=== PATIENT | male | born 1960 | race American Indian/Alaskan Native ===

== ENCOUNTER → 2017-01-24 | Outpatient (CLI) | payer BC ==
--- NOTE | 2017-01-25 17:54 | MR ---
EXAM DATE: 01/24/17 PATIENT'S AGE: 56 Patient: CAREY VERA Facility: [facility], [place], [place] Site . Site : 1960 Study: MRI Head Angio [id number] 8:09:34 PM Ordering Physician: Anatoly Castanon Final Report: Indication: Trigeminal neuralgia. Comparison none. Technique: [id number] MRA. 3D reconstructed images. Findings: Bilateral carotid siphons are patent. Patent [place] with diminutive bilateral posterior communicating arteries. Visualized bilateral GUNNAR and MCA circulations are patent without focal stenosis or aneurysm. Asymmetric hypoplastic left A1 GUNNAR segments is a normal variant. Bilateral ELECTROLOGIST circulations are patent without stenosis or aneurysm. Codominant vertebrobasilar system. Impression: Normal MRA head. Dictated by Luciano Garcia MD @ Jan 25 2017 12:29PM (Electronic Signature) Report Signed by Proxy and Original Signed Document filed in the Medical Record. KELSEY
== END ==
LOC: MW.MRI 17:15 → MERGE 18:00
PROVIDERS: ATTEND Student in an Organized Health Care Education/Training Program
DX: G50.0 Trigeminal neuralgia (principal)
CPT/HCPCS: 70544; 70544-26

== ENCOUNTER 2020-09-11 16:48 | Inpatient (IN) | payer BC, OTHER ==
[2020-09-11] MEDS ORDERED: Acetaminophen 325 MG Tab PO PRN (18:05)
[2020-09-11] MEDS ORDERED: Albuterol/Ipratropium 3.0-0.5 MG/3 ML Neb Soln NEB PRN (18:05)
[2020-09-11] MEDS ORDERED: Ondansetron 4 MG/2 ML SDV IVPUSH PRN (18:05)
--- NOTE | 2020-09-11 18:16 | PCM.HP.2 ---
H&P History of Present Illness - General Date of Service: 09/11/20 Admit Problem/Dx: Admission Diagnosis/Problem Admission Diagnosis/Problem Hypoxia - History of Present Illness Initial Comments - Free Text/Narative: Patient is a 60 y/o M with PMH of trigeminal neuralgia, who was transferred from [facility] secondary to hypoxia due to COVID. . Patient had come in to be evaluated for SOB, weakness. He was found to be sating 85% on RA, was started on oxygen, iniatlly was needing only 2L , later requirment went up to 5-6Lts. Patients inflammatory markers were elevated, CBC, CMP was unremarkable, CTA chest was negative for PE but did show COVID Pneumonia. Patient was transferred to [facility] for further management. Patient has h/o travel to [place] and thinks he got the virus there. Patient denies any fever, chills, headache, change in vision, syncope or near syncope, any chest pain, back pain, abdominal pain, nausea, vomiting, diarrhea, constipation or dysuria. Has not noted any blood in urine or stool. Patient has been eating and drinking appropriately. - Related Data Allergies/Adverse Reactions: Allergies Allergy/AdvReac Type Severity Reaction Status Date / Time No Known Allergies Allergy Verified 09/11/20 20:01 Home Medications: Home Meds Albuterol [Ventolin HFA] 1 puff INH PRN 09/11/20 [History] carBAMazepine [Carbamazepine] 200 mg PO Q6HR 09/11/20 [History] H&P Review of Systems - Review of Systems: Review Of Systems: See Below General: Reports: Malaise, Weakness, Fatigue. Denies: Fever, Chills Pulmonary: Reports: Shortness of Breath, Cough. Denies: Sputum Cardiovascular: Reports: Dyspnea on Exertion. Denies: Palpitations, Orthopnea, Syncope Gastrointestinal: Denies: Abdominal Pain, Anorexia, Black Stool, Bloody Stool Genitourinary: Denies: Dysuria, Frequency, Burning Musculoskeletal: Denies: Neck Pain, Shoulder Pain, Arm Pain Skin: Denies: Cyanosis, Jaundice, Mottled, Pallor, Change in Color Psychiatric: Denies: Confusion, Depression, Mood Lability, Anxiety Exam - Exam Exam: See Below - Vital Signs Vital Signs: Last Vital Signs Temp 37.0 C 09/11/20 18:00 Pulse 88 09/11/20 18:00 Resp 32 H 09/11/20 18:00 BP 110/54 L 09/11/20 18:00 Pulse Ox 90 L 09/11/20 18:00 - Exam Quality Assessment: Supplemental Oxygen General: Alert, Oriented, Cooperative, Mild Distress Neck: Supple, Trachea Midline Lungs: Normal Respiratory Effort, Decreased Breath Sounds, Crackles, Rhonchi. No: Clear to Auscultation Cardiovascular: Regular Rate, Regular Rhythm GI/Abdominal Exam: Normal Bowel Sounds, Soft, Non-Tender, No Organomegaly, No Distention - Patient Data Result Diagrams: 09/11/20 18:43 09/11/20 18:43 Sepsis Event Note - Focused Exam Vital Signs: Vital Signs Temp Pulse Resp BP Pulse Ox 09/11/20 18:00 37.0 C 88 32 H 110/54 L 90 L - Problem List (1) Trigeminal neuralgia of right side of face SNOMED Code(s): 52921614 ICD Code: G50.0 - TRIGEMINAL NEURALGIA Status: Acute Current Visit: Yes (2) Acute hypoxemic respiratory failure due to COVID-19 SNOMED Code(s): 009931980 ICD Code: U07.1 - COVID-19; J96.01 - ACUTE RESPIRATORY FAILURE WITH HYPOXIA Status: Acute Current Visit: Yes Problem List Initiated/Reviewed/Updated: Yes Orders Last 24hrs: Active Orders 24 hr Category Date Time Status Patient Status [ADT] Routine ADT 09/11/20 18:05 Active Ambulate [RC] ASDIRECTED Care 09/11/20 18:05 Active Blood Glucose Check, Bedside [RC] BIDMEALS Care 09/11/20 18:05 Active Oxygen Therapy [RC] PRN Care 09/11/20 18:05 Active RT Aerosol Therapy [RC] ASDIRECTED Care 09/11/20 18:10 Active VTE/DVT Education [RC] PER UNIT ROUTINE Care 09/11/20 18:05 Active Vital Signs [RC] Q4H Care 09/11/20 18:05 Active Regular Diet [DIET] Diet 09/11/20 Dinner Active CBC WITH AUTO DIFF [HEME] Routine Lab 09/11/20 18:05 Ordered COMPREHENSIVE METABOLIC PN,CMP [CHEM] Routine Lab 09/11/20 18:05 Ordered MAGNESIUM [CHEM] Routine Lab 09/11/20 18:05 Ordered PHOSPHORUS [CHEM] Routine Lab 09/11/20 18:05 Ordered Acetaminophen [TylenoL] Med 09/11/20 18:05 Ordered 650 mg PO Q4H PRN Albuterol/Ipratropium [DuoNeb 3.0-0.5 MG/3 ML] Med 09/11/20 18:05 Ordered 3 ml NEB Q4HRRT PRN Enoxaparin [Lovenox] Med 09/11/20 21:00 Ordered 40 mg SUBCUT Q24H Ondansetron [Zofran] Med 09/11/20 18:05 Ordered 4 mg IVPUSH Q4H PRN Pantoprazole [ProTONIX IV] Med 09/12/20 09:00 Ordered 40 mg IV DAILY dexAMETHasone Med 09/12/20 09:00 Ordered 6 mg PO DAILY Resuscitation Status Routine Resus Stat 09/11/20 18:05 Ordered Medication Orders Acetaminophen (Tylenol) 650 mg PO Q4H PRN PRN Reason: Pain (Mild 1-3)/fever Albuterol/Ipratropium (Duoneb 3.0-0.5 Mg/3 Ml) 3 ml NEB Q4HRRT PRN PRN Reason: Shortness Of Breath/wheezing Dexamethasone (Dexamethasone) 6 mg PO DAILY [facility] Enoxaparin Sodium (Lovenox) 40 mg SUBCUT Q24H [facility] Ondansetron HCl (Zofran) 4 mg IVPUSH Q4H PRN PRN Reason: Nausea/Vomiting Pantoprazole Sodium (Protonix Iv) 40 mg IV DAILY [facility]ACE[facility] Assessment/Plan Comment:: 60 y/o M admitted for Acute hypoxic respiratory failure due to COVID Oxygen as needed, currently on 5L high flow. Cont dexamethasone, Remdesivir and BID Lovenox, Combivent. Patient given fact sheet and explain emergency use FDA authorization of Remdesivir. He was explained side effects including hepatitis and anaphylaxis and consents to treatment. Will order convalescent plasma Encourage frequent proning Incentive spirometry as directed
[2020-09-11] MEDS ORDERED: Albuterol/Ipratropium 4 GM Inhalation Spray INH PRN (18:17)
[2020-09-11 19:48] LABS: BLOOD UREA NITROGEN,BUN 9 mg/dL (7.0-18.0); CARBON DIOXIDE,CO2 25.3 mmol/L (21.0-32.0); CHLORIDE,CL 99 mmol/L (98-107); GLUCOSE RANDOM 193 mg/dL (74-106); POTASSIUM,K 4.3 mmol/L (3.5-5.1); SODIUM,NA 134 mmol/L (136-148)
[2020-09-11] MEDS ORDERED: Phosphorus #1 250 MG Tab PO ONE (20:18)
[2020-09-11] MEDS ORDERED: REMDESIVIR 200 MG in Sodium Chloride 0.9% 250 ML IV SCH ×2 (20:19→21:00)
[2020-09-11] MEDS: Enoxaparin 40 MG/0.4 ML Syringe SUBCUT SCH (20:42)
[2020-09-11] MEDS ORDERED: Enoxaparin 40 MG/0.4 ML Syringe SUBCUT SCH (21:00)
[2020-09-11] MEDS: Acetaminophen 325 MG Tab PO PRN (21:56)
[2020-09-11] MEDS ORDERED: carBAMazepine 200 MG Tab PO SCH (22:00)
[2020-09-11] MEDS: carBAMazepine 100 MG Tab.Chew PO SCH (22:10)
[2020-09-12] MEDS ORDERED: carBAMazepine 100 MG Tab.Chew PO SCH
[2020-09-12 05:51] LABS: BLOOD UREA NITROGEN,BUN 11 mg/dL (7.0-18.0); CARBON DIOXIDE,CO2 26.2 mmol/L (21.0-32.0); CHLORIDE,CL 99 mmol/L (98-107); GLUCOSE RANDOM 113 mg/dL (74-106); SODIUM,NA 134 mmol/L (136-148)
[2020-09-12] MEDS: Pantoprazole 40 MG Vial IV SCH (08:34)
[2020-09-12] MEDS: Enoxaparin 40 MG/0.4 ML Syringe SUBCUT SCH ×2 (08:36→20:53)
[2020-09-12] MEDS: Dexamethasone 4 MG Tab PO SCH (08:36)
[2020-09-12] MEDS: carBAMazepine 100 MG Tab.Chew PO SCH ×4 (08:36→20:57)
[2020-09-12] MEDS: Albuterol/Ipratropium 4 GM Inhalation Spray INH SCH ×5 (08:52→23:30)
[2020-09-12] MEDS ORDERED: FLU Vacc QS2020-21 36MOS UP/PF 60 MCG/0.5 ML Syringe IM ONE (10:00)
--- NOTE | 2020-09-12 12:17 | PCM.PN ---
- General Info Date of Service: 09/12/20 Admission Dx/Problem (Free Text): Admission Diagnosis/Problem Admission Diagnosis/Problem Hypoxia Functional Status: Reports: Pain Controlled, Tolerating Diet, Urinating - Review of Systems General: Reports: Weakness, Fatigue, Malaise. Denies: Fever, Chills Pulmonary: Reports: Shortness of Breath, Cough, Sputum. Denies: Hemoptysis Cardiovascular: Reports: Dyspnea on Exertion. Denies: Chest Pain, Palpitations, Orthopnea, PND, Edema, Lightheadedness Gastrointestinal: Denies: Abdominal Pain, Constipation, Decreased Appetite, Diarrhea, Difficulty Swallowing Genitourinary: Denies: Dysuria, Frequency, Burning, Pain, Urgency Musculoskeletal: Denies: Neck Pain, Shoulder Pain, Arm Pain Skin: Denies: Cyanosis, Jaundice, Mottled Neurological: Denies: Confusion, Dizziness, Headache - Patient Data Vitals - Most Recent: Last Vital Signs Temp 37 C 09/12/20 08:00 Pulse 79 09/12/20 08:00 Resp 20 09/12/20 08:00 BP 103/55 L 09/12/20 08:00 Pulse Ox 91 L 09/12/20 08:05 Weight - Most Recent: 84.005 kg I&O - Last 24 Hours: Intake & Output 09/11/20 09/12/20 09/12/20 22:59 06:59 14:59 Intake Total 900 Output Total 900 Balance 0 Lab Results Last 24 Hours: Laboratory Results - last 24 hr 09/11/20 09/11/20 09/11/20 Range/Units 18:43 18:43 18:43 WBC 5.75 (4.0-11.0) K/uL RBC 4.38 L (4.50-5.90) M/uL Hgb 13.7 (13.0-17.0) g/dL Hct 40.7 (38.0-50.0) % MCV 92.9 (80.0-98.0) fL MCH 31.3 (27.0-32.0) pg MCHC 33.7 (31.0-37.0) g/dL RDW Std Deviation 43.3 (28.0-62.0) fl RDW Coeff of Lobito 13 (11.0-15.0) % Plt Count 190 (150-400) K/uL MPV 9.40 (7.40-12.00) fL Neut % (Auto) 86.8 H (48.0-80.0) % Lymph % (Auto) 9.4 L (16.0-40.0) % Love % (Auto) 3.8 (0.0-15.0) % Eos % (Auto) 0.0 (0.0-7.0) % Baso % (Auto) 0.0 (0.0-1.5) % Neut # (Auto) 5.0 (1.4-5.7) K/uL Lymph # (Auto) 0.5 L (0.6-2.4) K/uL Love # (Auto) 0.2 (0.0-0.8) K/uL Eos # (Auto) 0.0 (0.0-0.7) K/uL Baso # (Auto) 0.0 (0.0-0.1) K/uL Nucleated RBC % 0.0 /100WBC Nucleated RBCs # 0 K/uL INR 0.96 APTT 33.5 H (18.6-31.3) SEC Sodium 134 L (136-148) mmol/L Potassium 4.3 (3.5-5.1) mmol/L Chloride 99 (98-107) mmol/L Carbon Dioxide 25.3 (21.0-32.0) mmol/L BUN 9 (7.0-18.0) mg/dL Creatinine 1.1 (0.8-1.3) mg/dL Est Cr Clr Drug Dosing 63.64 mL/min Estimated GFR (MDRD) > 60.0 ml/min Glucose 193 H (74-106) mg/dL POC Glucose (60-110) mg/dL Calcium 8.0 L (8.5-10.1) mg/dL Phosphorus 2.0 L (2.6-4.7) mg/dL Magnesium 2.2 (1.8-2.4) mg/dL Total Bilirubin 0.3 (0.2-1.0) mg/dL AST 33 (15-37) IU/L ALT 31 (14-63) IU/L Alkaline Phosphatase 72 (46-116) U/L Total Protein 7.4 (6.4-8.2) g/dL Albumin 2.9 L (3.4-5.0) g/dL Globulin 4.5 H (2.6-4.0) g/dL Albumin/Globulin Ratio 0.6 L (0.9-1.6) Blood Type 09/11/20 09/12/20 09/12/20 Range/Units 18:43 04:55 04:55 WBC 5.71 (4.0-11.0) K/uL RBC 4.08 L (4.50-5.90) M/uL Hgb 12.6 L (13.0-17.0) g/dL Hct 37.9 L (38.0-50.0) % MCV 92.9 (80.0-98.0) fL MCH 30.9 (27.0-32.0) pg MCHC 33.2 (31.0-37.0) g/dL RDW Std Deviation 42.8 (28.0-62.0) fl RDW Coeff of Lobito 13 (11.0-15.0) % Plt Count 192 (150-400) K/uL MPV 9.70 (7.40-12.00) fL Neut % (Auto) 56.5 (48.0-80.0) % Lymph % (Auto) 37.5 (16.0-40.0) % Love % (Auto) 6.0 (0.0-15.0) % Eos % (Auto) 0.0 (0.0-7.0) % Baso % (Auto) 0.0 (0.0-1.5) % Neut # (Auto) 3.2 (1.4-5.7) K/uL Lymph # (Auto) 2.1 (0.6-2.4) K/uL Love # (Auto) 0.3 (0.0-0.8) K/uL Eos # (Auto) 0.0 (0.0-0.7) K/uL Baso # (Auto) 0.0 (0.0-0.1) K/uL Nucleated RBC % 0.0 /100WBC Nucleated RBCs # 0 K/uL INR APTT (18.6-31.3) SEC Sodium 134 L (136-148) mmol/L Potassium 4.0 (3.5-5.1) mmol/L Chloride 99 (98-107) mmol/L Carbon Dioxide 26.2 (21.0-32.0) mmol/L BUN 11 (7.0-18.0) mg/dL Creatinine 1.0 (0.8-1.3) mg/dL Est Cr Clr Drug Dosing 70.00 mL/min Estimated GFR (MDRD) > 60.0 ml/min Glucose 113 H (74-106) mg/dL POC Glucose (60-110) mg/dL Calcium 7.8 L (8.5-10.1) mg/dL Phosphorus 3.5 (2.6-4.7) mg/dL Magnesium 2.3 (1.8-2.4) mg/dL Total Bilirubin 0.3 (0.2-1.0) mg/dL AST 25 (15-37) IU/L ALT 27 (14-63) IU/L Alkaline Phosphatase 60 (46-116) U/L Total Protein 6.7 (6.4-8.2) g/dL Albumin 2.7 L (3.4-5.0) g/dL Globulin 4.0 (2.6-4.0) g/dL Albumin/Globulin Ratio 0.7 L (0.9-1.6) Blood Type O POSITIVE 09/12/20 Range/Units 08:43 WBC (4.0-11.0) K/uL RBC (4.50-5.90) M/uL Hgb (13.0-17.0) g/dL Hct (38.0-50.0) % MCV (80.0-98.0) fL MCH (27.0-32.0) pg MCHC (31.0-37.0) g/dL RDW Std Deviation (28.0-62.0) fl RDW Coeff of Lobito (11.0-15.0) % Plt Count (150-400) K/uL MPV (7.40-12.00) fL Neut % (Auto) (48.0-80.0) % Lymph % (Auto) (16.0-40.0) % Love % (Auto) (0.0-15.0) % Eos % (Auto) (0.0-7.0) % Baso % (Auto) (0.0-1.5) % Neut # (Auto) (1.4-5.7) K/uL Lymph # (Auto) (0.6-2.4) K/uL Love # (Auto) (0.0-0.8) K/uL Eos # (Auto) (0.0-0.7) K/uL Baso # (Auto) (0.0-0.1) K/uL Nucleated RBC % /100WBC Nucleated RBCs # K/uL INR APTT (18.6-31.3) SEC Sodium (136-148) mmol/L Potassium (3.5-5.1) mmol/L Chloride (98-107) mmol/L Carbon Dioxide (21.0-32.0) mmol/L BUN (7.0-18.0) mg/dL Creatinine (0.8-1.3) mg/dL Est Cr Clr Drug Dosing mL/min Estimated GFR (MDRD) ml/min Glucose (74-106) mg/dL POC Glucose 105 (60-110) mg/dL Calcium (8.5-10.1) mg/dL Phosphorus (2.6-4.7) mg/dL Magnesium (1.8-2.4) mg/dL Total Bilirubin (0.2-1.0) mg/dL AST (15-37) IU/L ALT (14-63) IU/L Alkaline Phosphatase (46-116) U/L Total Protein (6.4-8.2) g/dL Albumin (3.4-5.0) g/dL Globulin (2.6-4.0) g/dL Albumin/Globulin Ratio (0.9-1.6) Blood Type Med Orders - Current: Current Medications Acetaminophen (Tylenol) 650 mg PO Q4H PRN PRN Reason: Pain Last Admin: 09/11/20 21:56 Dose: 650 mg Documented by: Albuterol/Ipratropium (Combivent Respimat) 0 gm INH Q4H [facility] Last Admin: 09/12/20 08:52 Dose: 1 puff Documented by: Carbamazepine (Tegretol) 200 mg PO QIDPCANDBED [facility] Last Admin: 09/12/20 08:36 Dose: 200 mg Documented by: Dexamethasone (Dexamethasone) 6 mg PO DAILY [facility] Last Admin: 09/12/20 08:36 Dose: 6 mg Documented by: Enoxaparin Sodium (Lovenox) 40 mg SUBCUT Q12H [facility] Last Admin: 10/18/20 08:36 Dose: 40 mg Documented by: Remdesivir 100 mg/ Sodium (Chloride) 100 mls @ 100 mls/hr IV Q24H [facility] Stop: 09/15/20 22:59 Ondansetron HCl (Zofran) 4 mg IVPUSH Q4H PRN PRN Reason: Nausea/Vomiting Pantoprazole Sodium (Protonix Iv) 40 mg IV DAILY [facility] Last Admin: 09/12/20 08:34 Dose: 40 mg Documented by: Discontinued Medications Albuterol/Ipratropium (Duoneb 3.0-0.5 Mg/3 Ml) 3 ml NEB Q4HRRT PRN PRN Reason: Shortness Of Breath/wheezing Albuterol/Ipratropium (Combivent Respimat) 0 gm INH Q4H PRN PRN Reason: Dyspnea Carbamazepine (Tegretol Tab) 200 mg PO QID [facility] Carbamazepine (Tegretol Tab) 200 mg PO QID [facility] Last Admin: 09/11/20 23:01 Dose: Not Given Documented by: Carbamazepine (Tegretol) 200 mg PO QID [facility] Enoxaparin Sodium (Lovenox) 40 mg SUBCUT Q24H [facility] Remdesivir 200 mg/ Sodium (Chloride) 250 mls @ 250 mls/hr IV BEDTIME [facility] Stop: 09/11/20 21:59 Remdesivir 200 mg/ Sodium (Chloride) 250 mls @ 250 mls/hr IV BEDTIME [facility] Stop: 09/11/20 20:59 Last Admin: 09/11/20 22:03 Dose: 250 mls/hr Documented by: Influenza Virus Vaccine (Pharmacy To Dose - Influenza Vaccine) 1 each IM ONETIME ONE Stop: 09/11/20 20:46 Last Admin: 09/11/20 22:15 Dose: Not Given Documented by: Influenza Virus Vaccine (Afluria Quad 2020-21 (3yr Up)) 60 mcg IM .ONCE ONE Stop: 09/12/20 10:01 Sodium Phosphate (Neutra-Phos) 250 mg PO ONETIME ONE Stop: 09/11/20 20:19 Last Admin: 09/11/20 21:56 Dose: 250 mg Documented by: - Exam Quality Assessment: Supplemental Oxygen General: Alert, Oriented, Cooperative, Mild Distress Lungs: Decreased Breath Sounds, Crackles, Rales Cardiovascular: Regular Rate, Regular Rhythm GI/Abdominal Exam: Normal Bowel Sounds, Soft, Non-Tender Back Exam: Normal Inspection, Full Range of Motion Extremities: Normal Inspection, Normal Range of Motion Sepsis Event Note - Evaluation Sepsis Screening Result: No Definite Risk - Focused Exam Vital Signs: Vital Signs Temp Pulse Resp BP Pulse Ox 09/12/20 08:05 91 L 09/12/20 08:00 37 C 79 20 103/55 L 89 L 09/12/20 02:56 36.8 C 71 20 101/57 L 92 L 09/12/20 01:15 36.2 C 73 20 103/62 93 L - Problem List & Annotations (1) Trigeminal neuralgia of right side of face SNOMED Code(s): 35197143 Code(s): G50.0 - TRIGEMINAL NEURALGIA Status: Acute Current Visit: Yes (2) Acute hypoxemic respiratory failure due to COVID-19 SNOMED Code(s): 316308461 Code(s): U07.1 - COVID-19; J96.01 - ACUTE RESPIRATORY FAILURE WITH HYPOXIA Status: Acute Current Visit: Yes - Problem List Review Problem List Initiated/Reviewed/Updated: Yes - My Orders Last 24 Hours: My Active Orders 09/11/20 Dinner Regular Diet [DIET] 09/11/20 17:53 Telemetry Monitoring [Cardiac Monitoring] [RC] Q8H 09/11/20 18:05 Patient Status [ADT] Routine Ambulate [RC] ASDIRECTED Blood Glucose Check, Bedside [RC] BIDMEALS Oxygen Therapy [RC] PRN VTE/DVT Education [RC] PER UNIT ROUTINE Vital Signs [RC] Q4H Ondansetron [Zofran] 4 mg IVPUSH Q4H PRN Resuscitation Status Routine 09/11/20 18:17 RT Post Treatment Assessment [RC] Click to Edit RT Pre-Treatment Assessment [RC] Click to Edit 09/11/20 18:43 ABO/RH TYPE [BBK] Routine FRESH FROZEN PLASMA [BBK] Routine 09/11/20 20:29 PROCALCITONIN [REF] Routine 09/11/20 20:35 Acetaminophen [TylenoL] 650 mg PO Q4H PRN 09/11/20 20:46 Influenza Vaccine Charge [RC] .DISCHARGE 09/11/20 21:00 Enoxaparin [Lovenox] 40 mg SUBCUT Q12H 10/17/20 22:15 carBAMazepine [TEGretol] 200 mg PO QIDPCANDBED 09/12/20 07:41 RT Post Treatment Assessment [RC] Click to Edit RT Pre-Treatment Assessment [RC] Click to Edit 09/12/20 08:00 Albuterol/Ipratropium [Combivent Respimat] See Dose Instructions INH Q4H 09/12/20 09:00 Pantoprazole [ProTONIX IV] 40 mg IV DAILY dexAMETHasone 6 mg PO DAILY 09/12/20 22:00 Remdesivir (Eua) [Remdesivir (EUA)] 100 mg Sodium Chloride 0.9% [Normal Saline] 100 ml IV Q24H - Plan Plan:: 60 y/o M admitted for Acute hypoxic respiratory failure due to COVID Oxygen as needed, currently on 6L high flow. Cont dexamethasone, Remdesivir and BID Lovenox, Combivent. Transfuse convalescent plasma Encourage frequent proning Incentive spirometry as directed
[2020-09-12] MEDS ORDERED: Furosemide 40 MG/4 ML VIAL IVPUSH ONE (13:02)
[2020-09-12] MEDS ORDERED: carBAMazepine 200 MG Tab PO SCH (20:45)
[2020-09-12] MEDS: REMDESIVIR 100 MG in Sodium Chloride 0.9% 100 ML IV SCH (21:24)
[2020-09-12] MEDS ORDERED: traZODone 50 MG Tab PO ONE (23:24)
[2020-09-13] MEDS: Albuterol/Ipratropium 4 GM Inhalation Spray INH SCH ×5 (03:59→20:57)
[2020-09-13 05:39] LABS: BLOOD UREA NITROGEN,BUN 12 mg/dL (7.0-18.0); CARBON DIOXIDE,CO2 28.2 mmol/L (21.0-32.0); CHLORIDE,CL 97 mmol/L (98-107); GLUCOSE RANDOM 100 mg/dL (74-106); POTASSIUM,K 3.8 mmol/L (3.5-5.1); SODIUM,NA 135 mmol/L (136-148)
[2020-09-13] MEDS: Enoxaparin 40 MG/0.4 ML Syringe SUBCUT SCH ×2 (08:25→20:54)
[2020-09-13] MEDS: Pantoprazole 40 MG Vial IV SCH (08:25)
[2020-09-13] MEDS: Dexamethasone 4 MG Tab PO SCH (08:26)
[2020-09-13] MEDS: carBAMazepine 100 MG Tab.Chew PO SCH ×4 (10:22→20:54)
--- NOTE | 2020-09-13 14:02 | PCM.PN ---
<Mercy Kiser - Last Filed: 09/13/20 13:51> - General Info Date of Service: 09/13/20 Subjective Update: 60 y/o Gentlemen transferred from [facility], admitted for hypoxia 2/2 +COVID 19. Initially presented with s.o.b, weakness, and saturating at 85% on R.A. Was put on 8L's of oxygen, now on 6L's. There were no overnight events, is doing much better this morning, has more energy and was up from bed ambulating to his chair and enjoying his breakfast. Functional Status: Reports: Ambulating, Incentive Spirometry - Review of Systems General: Reports: Appetite (normal ). Denies: Fever, Chills, Night Sweats HEENT: Reports: No Symptoms, Sinus Congestion, Sore Throat, Rhinitis Pulmonary: Reports: No Symptoms, Cough, Sputum, Wheezing Cardiovascular: Reports: No Symptoms. Denies: Chest Pain, Lightheadedness Gastrointestinal: Reports: No Symptoms. Denies: Abdominal Pain, Constipation, Diarrhea, Difficulty Swallowing, Nausea, Vomiting Genitourinary: Reports: No Symptoms Musculoskeletal: Reports: No Symptoms Skin: Reports: No Symptoms Neurological: Reports: No Symptoms. Denies: Confusion, Headache Psychiatric: Reports: No Symptoms - Patient Data Vitals - Most Recent: Last Vital Signs Temp 98.1 F 09/13/20 12:00 Pulse 78 09/13/20 12:00 Resp 18 09/13/20 12:00 BP 116/61 09/13/20 12:00 Pulse Ox 89 L 09/13/20 12:00 Weight - Most Recent: 84.005 kg I&O - Last 24 Hours: Intake & Output 09/12/20 09/13/20 09/13/20 22:59 06:59 14:59 Intake Total 1563 1050 Output Total 1600 950 Balance -37 100 Lab Results Last 24 Hours: Laboratory Results - last 24 hr 09/12/20 09/13/20 09/13/20 Range/Units 17:13 05:10 05:10 WBC 8.07 (4.0-11.0) K/uL RBC 3.93 L (4.50-5.90) M/uL Hgb 12.5 L (13.0-17.0) g/dL Hct 36.3 L (38.0-50.0) % MCV 92.4 (80.0-98.0) fL MCH 31.8 (27.0-32.0) pg MCHC 34.4 (31.0-37.0) g/dL RDW Std Deviation 43.2 (28.0-62.0) fl RDW Coeff of Lobito 13 (11.0-15.0) % Plt Count 247 (150-400) K/uL MPV 9.00 (7.40-12.00) fL Neut % (Auto) 67.0 (48.0-80.0) % Lymph % (Auto) 26.3 (16.0-40.0) % Sharp % (Auto) 6.7 (0.0-15.0) % Eos % (Auto) 0.0 (0.0-7.0) % Baso % (Auto) 0.0 (0.0-1.5) % Neut # (Auto) 5.4 (1.4-5.7) K/uL Lymph # (Auto) 2.1 (0.6-2.4) K/uL Sharp # (Auto) 0.5 (0.0-0.8) K/uL Eos # (Auto) 0.0 (0.0-0.7) K/uL Baso # (Auto) 0.0 (0.0-0.1) K/uL Nucleated RBC % 0.0 /100WBC Nucleated RBCs # 0 K/uL Sodium 135 L (136-148) mmol/L Potassium 3.8 (3.5-5.1) mmol/L Chloride 97 L (98-107) mmol/L Carbon Dioxide 28.2 (21.0-32.0) mmol/L BUN 12 (7.0-18.0) mg/dL Creatinine 1.0 (0.8-1.3) mg/dL Est Cr Clr Drug Dosing 70.00 mL/min Estimated GFR (MDRD) > 60.0 ml/min Glucose 100 (74-106) mg/dL POC Glucose 143 H (60-110) mg/dL Calcium 7.8 L (8.5-10.1) mg/dL Phosphorus 3.3 (2.6-4.7) mg/dL Magnesium 2.1 (1.8-2.4) mg/dL Total Bilirubin 0.4 (0.2-1.0) mg/dL AST 31 (15-37) IU/L ALT 30 (14-63) IU/L Alkaline Phosphatase 65 (46-116) U/L Total Protein 6.6 (6.4-8.2) g/dL Albumin 2.7 L (3.4-5.0) g/dL Globulin 3.9 (2.6-4.0) g/dL Albumin/Globulin Ratio 0.7 L (0.9-1.6) 09/13/20 Range/Units 08:05 WBC (4.0-11.0) K/uL RBC (4.50-5.90) M/uL Hgb (13.0-17.0) g/dL Hct (38.0-50.0) % MCV (80.0-98.0) fL MCH (27.0-32.0) pg MCHC (31.0-37.0) g/dL RDW Std Deviation (28.0-62.0) fl RDW Coeff of Lobito (11.0-15.0) % Plt Count (150-400) K/uL MPV (7.40-12.00) fL Neut % (Auto) (48.0-80.0) % Lymph % (Auto) (16.0-40.0) % Sharp % (Auto) (0.0-15.0) % Eos % (Auto) (0.0-7.0) % Baso % (Auto) (0.0-1.5) % Neut # (Auto) (1.4-5.7) K/uL Lymph # (Auto) (0.6-2.4) K/uL Sharp # (Auto) (0.0-0.8) K/uL Eos # (Auto) (0.0-0.7) K/uL Baso # (Auto) (0.0-0.1) K/uL Nucleated RBC % /100WBC Nucleated RBCs # K/uL Sodium (136-148) mmol/L Potassium (3.5-5.1) mmol/L Chloride (98-107) mmol/L Carbon Dioxide (21.0-32.0) mmol/L BUN (7.0-18.0) mg/dL Creatinine (0.8-1.3) mg/dL Est Cr Clr Drug Dosing mL/min Estimated GFR (MDRD) ml/min Glucose (74-106) mg/dL POC Glucose 90 (60-110) mg/dL Calcium (8.5-10.1) mg/dL Phosphorus (2.6-4.7) mg/dL Magnesium (1.8-2.4) mg/dL Total Bilirubin (0.2-1.0) mg/dL AST (15-37) IU/L ALT (14-63) IU/L Alkaline Phosphatase (46-116) U/L Total Protein (6.4-8.2) g/dL Albumin (3.4-5.0) g/dL Globulin (2.6-4.0) g/dL Albumin/Globulin Ratio (0.9-1.6) Med Orders - Current: Current Medications Acetaminophen (Tylenol) 650 mg PO Q4H PRN PRN Reason: Pain Last Admin: 09/11/20 21:56 Dose: 650 mg Documented by: Albuterol/Ipratropium (Combivent Respimat) 0 gm INH Q4H [facility] Last Admin: 09/13/20 12:50 Dose: 1 puff Documented by: Carbamazepine (Tegretol) 200 mg PO QIDPCANDBED [facility] Last Admin: 09/13/20 12:47 Dose: 200 mg Documented by: Dexamethasone (Dexamethasone) 6 mg PO DAILY [facility] Last Admin: 09/13/20 08:26 Dose: 6 mg Documented by: Enoxaparin Sodium (Lovenox) 40 mg SUBCUT Q12H [facility] Last Admin: 09/13/20 08:25 Dose: 40 mg Documented by: Remdesivir 100 mg/ Sodium (Chloride) 100 mls @ 100 mls/hr IV Q24H [facility] Stop: 09/15/20 22:59 Last Admin: 09/12/20 21:24 Dose: 100 mls/hr Documented by: Ondansetron HCl (Zofran) 4 mg IVPUSH Q4H PRN PRN Reason: Nausea/Vomiting Pantoprazole Sodium (Protonix Iv) 40 mg IV DAILY [facility] Last Admin: 09/13/20 08:25 Dose: 40 mg Documented by: Discontinued Medications Albuterol/Ipratropium (Duoneb 3.0-0.5 Mg/3 Ml) 3 ml NEB Q4HRRT PRN PRN Reason: Shortness Of Breath/wheezing Albuterol/Ipratropium (Combivent Respimat) 0 gm INH Q4H PRN PRN Reason: Dyspnea Carbamazepine (Tegretol Tab) 200 mg PO QID [facility] Carbamazepine (Tegretol Tab) 200 mg PO QID [facility] Last Admin: 09/11/20 23:01 Dose: Not Given Documented by: Carbamazepine (Tegretol) 200 mg PO QID [facility] Enoxaparin Sodium (Lovenox) 40 mg SUBCUT Q24H [facility] Furosemide (Lasix) 20 mg IVPUSH NOW ONE Stop: 09/12/20 13:03 Last Admin: 09/12/20 13:52 Dose: 20 mg Documented by: Remdesivir 200 mg/ Sodium (Chloride) 250 mls @ 250 mls/hr IV BEDTIME [facility] Stop: 09/11/20 21:59 Remdesivir 200 mg/ Sodium (Chloride) 250 mls @ 250 mls/hr IV BEDTIME [facility] Stop: 09/11/20 20:59 Last Admin: 09/11/20 22:03 Dose: 250 mls/hr Documented by: Influenza Virus Vaccine (Pharmacy To Dose - Influenza Vaccine) 1 each IM ONETIME ONE Stop: 09/11/20 20:46 Last Admin: 09/11/20 22:15 Dose: Not Given Documented by: Influenza Virus Vaccine (Afluria Quad 2019- (3yr Up)) 60 mcg IM .ONCE ONE Stop: 09/12/20 10:01 Sodium Phosphate (Neutra-Phos) 250 mg PO ONETIME ONE Stop: 09/11/20 20:19 Last Admin: 09/11/20 21:56 Dose: 250 mg Documented by: Trazodone HCl (Trazodone) 50 mg PO ONETIME ONE Stop: 09/12/20 23:25 Last Admin: 09/12/20 23:38 Dose: 50 mg Documented by: Sepsis Event Note - Evaluation Sepsis Screening Result: No Definite Risk - Focused Exam Vital Signs: Vital Signs Temp Pulse Resp BP Pulse Ox 09/13/20 12:00 98.1 F 78 18 116/61 89 L 09/13/20 08:00 98.1 F 80 19 111/54 L 89 L 09/13/20 03:54 97.8 F 78 19 118/58 L 92 L - Problem List & Annotations (1) Acute hypoxemic respiratory failure due to COVID-19 SNOMED Code(s): 535460948 Code(s): U07.1 - COVID-19; J96.01 - ACUTE RESPIRATORY FAILURE WITH HYPOXIA Status: Acute (2) Trigeminal neuralgia of right side of face SNOMED Code(s): 06437396 Code(s): G50.0 - TRIGEMINAL NEURALGIA Status: Chronic - Problem List Review Problem List Initiated/Reviewed/Updated: Yes - Plan Plan:: Assessment and Plan: 60 y/o M admitted for Acute hypoxic respiratory failure secondary to positive COVID 19 1. Oxygen as needed, currently on 6L high flow 92% O2 saturation, Continue with dexamethasone, Remdesivir 100mg, and BID Lovenox, Combivent. Transfuse second dose of convalescent plasma today. Encourage frequent proning and Incentive spirometry. 2. Continue home dose of Carbamazepine for PMHx of Trigeminal Neuralgia. For DVT ppx enoxaparin 40mg subq BID, for GI ppx 40mg IV pantoprazole <Raymond Ferrell - Last Filed: 09/19/20 23:17> - Patient Data Vitals - Most Recent: Last Vital Signs Temp 37.2 C 09/16/20 15:41 Pulse 94 09/16/20 06:59 Resp 34 H 09/16/20 15:41 BP 125/64 09/16/20 15:41 Pulse Ox 95 09/16/20 15:41 Med Orders - Current: Current Medications Discontinued Medications Acetaminophen (Tylenol) 650 mg PO Q4H PRN PRN Reason: Pain Last Admin: 09/13/20 20:58 Dose: 650 mg Documented by: Albuterol/Ipratropium (Duoneb 3.0-0.5 Mg/3 Ml) 3 ml NEB Q4HRRT PRN PRN Reason: Shortness Of Breath/wheezing Albuterol/Ipratropium (Combivent Respimat) 0 gm INH Q4H PRN PRN Reason: Dyspnea Albuterol/Ipratropium (Combivent Respimat) 0 gm INH Q4H [facility] Last Admin: 09/15/20 04:05 Dose: 1 puff Documented by: Albuterol/Ipratropium (Combivent Respimat) 0 gm INH Q4H [facility] Last Admin: 09/15/20 17:41 Dose: 1 inh Documented by: Albuterol/Ipratropium (Duoneb 3.0-0.5 Mg/3 Ml) 3 ml NEB Q4HRRT [facility] Last Admin: 09/16/20 09:03 Dose: 3 ml Documented by: Carbamazepine (Tegretol Tab) 200 mg PO QID [facility] Carbamazepine (Tegretol Tab) 200 mg PO QID [facility] Last Admin: 09/11/20 23:01 Dose: Not Given Documented by: Carbamazepine (Tegretol) 200 mg PO QID [facility] Carbamazepine (Tegretol) 200 mg PO QIDPCANDBED [facility] Last Admin: 09/16/20 12:20 Dose: 200 mg Documented by: Dexamethasone (Dexamethasone) 6 mg PO DAILY [facility] Last Admin: 09/16/20 08:14 Dose: 6 mg Documented by: Enoxaparin Sodium (Lovenox) 40 mg SUBCUT Q24H [facility] Enoxaparin Sodium (Lovenox) 40 mg SUBCUT Q12H [facility] Last Admin: 09/16/20 08:23 Dose: 40 mg Documented by: Fentanyl (Sublimaze) Confirm Administered Dose 100 mcg .ROUTE .STK-MED ONE Stop: 09/16/20 13:25 Furosemide (Lasix) 20 mg IVPUSH NOW ONE Stop: 09/12/20 13:03 Last Admin: 09/12/20 13:52 Dose: 20 mg Documented by: Remdesivir 200 mg/ Sodium (Chloride) 250 mls @ 250 mls/hr IV BEDTIME [facility] Stop: 09/11/20 21:59 Remdesivir 200 mg/ Sodium (Chloride) 250 mls @ 250 mls/hr IV BEDTIME [facility] Stop: 09/11/20 20:59 Last Admin: 09/11/20 22:03 Dose: 250 mls/hr Documented by: Remdesivir 100 mg/ Sodium (Chloride) 100 mls @ 100 mls/hr IV Q24H [facility] Stop: 09/15/20 22:59 Last Admin: 09/15/20 21:53 Dose: 100 mls/hr Documented by: Levofloxacin/Dextrose 750 mg/ (Premix) 150 mls @ 100 mls/hr IV Q24H [facility] Last Admin: 09/15/20 20:13 Dose: 100 mls/hr Documented by: Propofol (Diprivan 100 Ml) Confirm Administered Dose 100 mls @ as directed .ROUTE .STK-MED ONE Stop: 09/16/20 13:26 Last Admin: 09/16/20 14:20 Dose: 12.5 mls/hr Documented by: Norepinephrine Bitartrate (Norepinephr-0.9% Nacl 4 Mg/250) Confirm Administered Dose 4 mg in 250 mls @ as directed IV .STK-MED ONE Stop: 09/16/20 14:01 Last Admin: 09/16/20 14:24 Dose: 7.5 mls/hr Documented by: Propofol (Diprivan 100 Ml) Confirm Administered Dose 100 mls @ as directed .ROUTE .STK-MED ONE Stop: 09/16/20 15:47 Last Admin: 09/16/20 18:42 Dose: Not Given Documented by: Influenza Virus Vaccine (Pharmacy To Dose - Influenza Vaccine) 1 each IM ONETIME ONE Stop: 09/11/20 20:46 Last Admin: 09/11/20 22:15 Dose: Not Given Documented by: Influenza Virus Vaccine (Afluria Quad 2019- (3yr Up)) 60 mcg IM .ONCE ONE Stop: 09/12/20 10:01 Midazolam HCl (Versed 1 Mg/Ml) Confirm Administered Dose 2 mg .ROUTE .STK-MED ONE Stop: 09/16/20 13:25 Ondansetron HCl (Zofran) 4 mg IVPUSH Q4H PRN PRN Reason: Nausea/Vomiting Pantoprazole Sodium (Protonix Iv) 40 mg IV DAILY [facility] Last Admin: 09/16/20 08:24 Dose: 40 mg Documented by: Sodium Chloride ([place] Nasal [place]) 0 ml NASBOTH Q4H PRN PRN Reason: DRY NOSE Last Admin: 09/14/20 13:07 Dose: 1 spray Documented by: Sodium Chloride (Saline Flush) 10 ml FLUSH ASDIRECTED PRN PRN Reason: saline flush Last Admin: 09/15/20 04:00 Dose: 10 ml Documented by: Sodium Phosphate (Neutra-Phos) 250 mg PO ONETIME ONE Stop: 09/11/20 20:19 Last Admin: 09/11/20 21:56 Dose: 250 mg Documented by: Trazodone HCl (Trazodone) 50 mg PO ONETIME ONE Stop: 09/12/20 23:25 Last Admin: 09/12/20 23:38 Dose: 50 mg Documented by: - Problem List & Annotations (1) Trigeminal neuralgia of right side of face SNOMED Code(s): 20162902 Code(s): G50.0 - TRIGEMINAL NEURALGIA Status: Chronic (2) Acute hypoxemic respiratory failure due to COVID-19 SNOMED Code(s): 057309473 Code(s): U07.1 - COVID-19; J96.01 - ACUTE RESPIRATORY FAILURE WITH HYPOXIA Status: Acute - Plan Plan:: I have seen and evaluated the patient. I have discussed findings and treatment plan with resident. I agree with the assessment and plan in the following note.
[2020-09-13] MEDS: Acetaminophen 325 MG Tab PO PRN (20:58)
[2020-09-13] MEDS: REMDESIVIR 100 MG in Sodium Chloride 0.9% 100 ML IV SCH (21:52)
[2020-09-14] MEDS: Albuterol/Ipratropium 4 GM Inhalation Spray INH SCH ×6 (00:08→20:00)
[2020-09-14] MEDS: Sodium Chloride 0.65% Nasal Spray 45 ML Bottle NASBOTH PRN ×2 (03:34→13:07)
[2020-09-14] MEDS: Dexamethasone 4 MG Tab PO SCH (08:16)
[2020-09-14] MEDS: carBAMazepine 100 MG Tab.Chew PO SCH ×5 (08:16→20:35)
[2020-09-14] MEDS: Pantoprazole 40 MG Vial IV SCH (08:17)
[2020-09-14] MEDS: Enoxaparin 40 MG/0.4 ML Syringe SUBCUT SCH ×2 (08:17→20:35)
[2020-09-14 08:59] LABS: BLOOD UREA NITROGEN,BUN 10 mg/dL (7.0-18.0); CARBON DIOXIDE,CO2 25.9 mmol/L (21.0-32.0); CHLORIDE,CL 93 mmol/L (98-107); GLUCOSE RANDOM 98 mg/dL (74-106); POTASSIUM,K 3.8 mmol/L (3.5-5.1); SODIUM,NA 129 mmol/L (136-148)
--- NOTE | 2020-09-14 11:17 | PCM.PN ---
- General Info Date of Service: 09/14/20 Admission Dx/Problem (Free Text): Pt is a 60 y/o with PMHx of Trigeminal neuralgia, admitted for and being treated for acute hypoxic respiratory failure secondary to COVID 19. Initially presented with s.o.b, weakness, with O2 sat's 85% on r.a. Was started in 8L high flow oxygen, since has been titrated down to 6L, has also received Remdesivir and 2 complete doses of Convalescent Plasma. Last night he tolerated the 2nd transfusion well, but did develop a temperature of 100.2 ; was given Tylenol and has remained afebrile since. This morning, he is tired, but stable, still on 6L, without any chest pain, cough, use of accessory muscles. Functional Status: Reports: Incentive Spirometry - Review of Systems General: Reports: No Symptoms HEENT: Reports: No Symptoms Pulmonary: Denies: Shortness of Breath (on 6L high flow), Pleuritic Chest Pain, Cough, Sputum, Hemoptysis, Wheezing Cardiovascular: Reports: No Symptoms Gastrointestinal: Reports: No Symptoms Genitourinary: Reports: No Symptoms Musculoskeletal: Reports: No Symptoms Skin: Reports: No Symptoms Neurological: Reports: No Symptoms Psychiatric: Reports: No Symptoms - Patient Data Vitals - Most Recent: Last Vital Signs Temp 98.6 F 09/14/20 08:00 Pulse 85 09/14/20 08:00 Resp 20 09/14/20 08:00 BP 118/62 09/14/20 08:00 Pulse Ox 89 L 09/14/20 08:00 Weight - Most Recent: 185 lb 3.2 oz I&O - Last 24 Hours: Intake & Output 09/13/20 09/14/20 09/14/20 22:59 06:59 14:59 Intake Total 2729 1200 Output Total 1825 1500 Balance 904 -300 Lab Results Last 24 Hours: Laboratory Results - last 24 hr 09/11/20 09/11/20 09/13/20 Range/Units 18:43 18:43 17:25 WBC (4.0-11.0) K/uL RBC (4.50-5.90) M/uL Hgb (13.0-17.0) g/dL Hct (38.0-50.0) % MCV (80.0-98.0) fL MCH (27.0-32.0) pg MCHC (31.0-37.0) g/dL RDW Std Deviation (28.0-62.0) fl RDW Coeff of Lobito (11.0-15.0) % Plt Count (150-400) K/uL MPV (7.40-12.00) fL Neut % (Auto) (48.0-80.0) % Lymph % (Auto) (16.0-40.0) % [place]rell % (Auto) (0.0-15.0) % Eos % (Auto) (0.0-7.0) % Baso % (Auto) (0.0-1.5) % Neut # (Auto) (1.4-5.7) K/uL Lymph # (Auto) (0.6-2.4) K/uL [place]rell # (Auto) (0.0-0.8) K/uL Eos # (Auto) (0.0-0.7) K/uL Baso # (Auto) (0.0-0.1) K/uL Nucleated RBC % /100WBC Nucleated RBCs # K/uL Sodium (136-148) mmol/L Potassium (3.5-5.1) mmol/L Chloride (98-107) mmol/L Carbon Dioxide (21.0-32.0) mmol/L BUN (7.0-18.0) mg/dL Creatinine (0.8-1.3) mg/dL Est Cr Clr Drug Dosing mL/min Estimated GFR (MDRD) ml/min Glucose (74-106) mg/dL POC Glucose 114 H (60-110) mg/dL Calcium (8.5-10.1) mg/dL Total Bilirubin (0.2-1.0) mg/dL AST (15-37) IU/L ALT (14-63) IU/L Alkaline Phosphatase (46-116) U/L Total Protein (6.4-8.2) g/dL Albumin (3.4-5.0) g/dL Globulin (2.6-4.0) g/dL Albumin/Globulin Ratio (0.9-1.6) Procalcitonin 0.06 (<0.10) ng/mL Blood Type O POSITIVE 09/14/20 09/14/20 09/14/20 Range/Units 08:07 08:07 08:10 WBC 10.46 (4.0-11.0) K/uL RBC 4.02 L (4.50-5.90) M/uL Hgb 12.7 L (13.0-17.0) g/dL Hct 36.5 L (38.0-50.0) % MCV 90.8 (80.0-98.0) fL MCH 31.6 (27.0-32.0) pg MCHC 34.8 (31.0-37.0) g/dL RDW Std Deviation 41.5 (28.0-62.0) fl RDW Coeff of Lobito 12 (11.0-15.0) % Plt Count 309 (150-400) K/uL MPV 9.30 (7.40-12.00) fL Neut % (Auto) 72.6 (48.0-80.0) % Lymph % (Auto) 20.5 (16.0-40.0) % Tyrrell % (Auto) 6.6 (0.0-15.0) % Eos % (Auto) 0.1 (0.0-7.0) % Baso % (Auto) 0.2 (0.0-1.5) % Neut # (Auto) 7.6 H (1.4-5.7) K/uL Lymph # (Auto) 2.1 (0.6-2.4) K/uL [place]rell # (Auto) 0.7 (0.0-0.8) K/uL Eos # (Auto) 0.0 (0.0-0.7) K/uL Baso # (Auto) 0.0 (0.0-0.1) K/uL Nucleated RBC % 0.0 /100WBC Nucleated RBCs # 0 K/uL Sodium 129 L (136-148) mmol/L Potassium 3.8 (3.5-5.1) mmol/L Chloride 93 L (98-107) mmol/L Carbon Dioxide 25.9 (21.0-32.0) mmol/L BUN 10 (7.0-18.0) mg/dL Creatinine 0.9 (0.8-1.3) mg/dL Est Cr Clr Drug Dosing 77.78 mL/min Estimated GFR (MDRD) > 60.0 ml/min Glucose 98 (74-106) mg/dL POC Glucose 101 (60-110) mg/dL Calcium 8.1 L (8.5-10.1) mg/dL Total Bilirubin 0.6 (0.2-1.0) mg/dL AST 36 (15-37) IU/L ALT 33 (14-63) IU/L Alkaline Phosphatase 77 (46-116) U/L Total Protein 6.7 (6.4-8.2) g/dL Albumin 2.7 L (3.4-5.0) g/dL Globulin 4.0 (2.6-4.0) g/dL Albumin/Globulin Ratio 0.7 L (0.9-1.6) Procalcitonin (<0.10) ng/mL Blood Type Med Orders - Current: Current Medications Acetaminophen (Tylenol) 650 mg PO Q4H PRN PRN Reason: Pain Last Admin: 09/13/20 20:58 Dose: 650 mg Documented by: Albuterol/Ipratropium (Combivent Respimat) [address] [facility] Last Admin: 09/14/20 09:21 Dose: 1 puff Documented by: Carbamazepine (Tegretol) [address] [facility] Last Admin: 09/14/20 08:16 Dose: 200 mg Documented by: Dexamethasone (Dexamethasone) [address] [facility] Last Admin: 09/14/20 08:16 Dose: 6 mg Documented by: Enoxaparin Sodium (Lovenox) [address] [facility] Last Admin: 09/14/20 08:17 Dose: 40 mg Documented by: Remdesivir 100 mg/ Sodium (Chloride) 100 mls @ 100 mls/hr IV Q24H [facility] Stop: 09/15/20 22:59 Last Admin: 09/13/20 21:52 Dose: 100 mls/hr Documented by: Ondansetron HCl (Zofran) 4 mg IVPUSH Q4H PRN PRN Reason: Nausea/Vomiting Pantoprazole Sodium (Protonix Iv) [address] [facility] Last Admin: 09/14/20 08:17 Dose: 40 mg Documented by: Sodium Chloride ([place] Nasal [place]) 0 ml NASBOTH Q4H PRN PRN Reason: DRY NOSE Last Admin: 09/14/20 03:34 Dose: 1 spray Documented by: Discontinued Medications Albuterol/Ipratropium (Duoneb 3.0-0.5 Mg/3 Ml) 3 ml NEB Q4HRRT PRN PRN Reason: Shortness Of Breath/wheezing Albuterol/Ipratropium (Combivent Respimat) 0 gm INH Q4H PRN PRN Reason: Dyspnea Carbamazepine (Tegretol Tab) 200 mg PO QID [facility] Carbamazepine (Tegretol Tab) 200 mg PO QID [facility] Last Admin: 09/11/20 23:01 Dose: Not Given Documented by: Carbamazepine (Tegretol) 200 mg PO QID [facility] Enoxaparin Sodium (Lovenox) 40 mg SUBCUT Q24H [facility] Furosemide (Lasix) 20 mg IVPUSH NOW ONE Stop: 09/12/20 13:03 Last Admin: 09/12/20 13:52 Dose: 20 mg Documented by: Remdesivir 200 mg/ Sodium (Chloride) 250 mls @ 250 mls/hr IV BEDTIME [facility] Stop: 09/11/20 21:59 Remdesivir 200 mg/ Sodium (Chloride) 250 mls @ 250 mls/hr IV BEDTIME [facility] Stop: 09/11/20 20:59 Last Admin: 09/11/20 22:03 Dose: 250 mls/hr Documented by: Influenza Virus Vaccine (Pharmacy To Dose - Influenza Vaccine) 1 each IM ONETIME ONE Stop: 09/11/20 20:46 Last Admin: 09/11/20 22:15 Dose: Not Given Documented by: Influenza Virus Vaccine (Afluria Quad 2020- (3yr Up)) 60 mcg IM .ONCE ONE Stop: 09/12/20 10:01 Sodium Phosphate (Neutra-Phos) 250 mg PO ONETIME ONE Stop: 09/11/20 20:19 Last Admin: 09/11/20 21:56 Dose: 250 mg Documented by: Trazodone HCl (Trazodone) 50 mg PO ONETIME ONE Stop: 09/12/20 23:25 Last Admin: 09/12/20 23:38 Dose: 50 mg Documented by: - Exam Quality Assessment: Supplemental Oxygen (6L high flow) General: Alert, Oriented, Cooperative, No Acute Distress HEENT: Pupils Equal, Pupils Reactive, EOMI, Mucous Membr. Moist/[place] Neck: Supple Lungs: Clear to Auscultation, Normal Respiratory Effort, Crackles. No: Decreased Breath Sounds, Rales, Rhonchi, Wheezing Cardiovascular: Regular Rate, Regular Rhythm, No Murmurs. No: Gallops GI/Abdominal Exam: Normal Bowel Sounds, Soft, Non-Tender, No Organomegaly, No Distention, No Abnormal Bruit, No Mass Extremities: Normal Inspection, Normal Range of Motion, No Pedal Edema Peripheral Pulses: 2+: Dorsalis Pedis (L), Dorsalis Pedis (R) Skin: Warm, Dry, Intact Neurological: No New Focal Deficit, Strength Equal Bilateral, Reflexes Equal Bilateral, Sensation Intact, Cranial Nerves Intact Psy/Mental Status: Alert, Normal Affect, Normal Mood Sepsis Event Note - Evaluation Sepsis Screening Result: No Definite Risk - Focused Exam Vital Signs: Vital Signs Temp Pulse Resp BP Pulse Ox 09/14/20 08:00 98.6 F 85 20 118/62 89 L 09/14/20 03:00 97.9 F 77 20 111/51 L 91 L 09/13/20 23:30 97.7 F 81 20 105/50 L 90 L - Problem List & Annotations (1) Acute hypoxemic respiratory failure due to COVID-19 SNOMED Code(s): 308636915 Code(s): U07.1 - COVID-19; J96.01 - ACUTE RESPIRATORY FAILURE WITH HYPOXIA Status: Acute Current Visit: Yes (2) Trigeminal neuralgia of right side of face SNOMED Code(s): 43857980 Code(s): G50.0 - TRIGEMINAL NEURALGIA Status: Chronic Current Visit: Yes (3) Hyponatremia SNOMED Code(s): 86899332 Code(s): E87.1 - HYPO-OSMOLALITY AND HYPONATREMIA Status: Acute Current Visit: Yes (4) Hypochloremia SNOMED Code(s): 53729274 Code(s): E87.8 - OTH DISORDERS OF ELECTROLYTE AND FLUID BALANCE, NEC Status: Acute Current Visit: Yes - Problem List Review Problem List Initiated/Reviewed/Updated: Yes - My Orders Last 24 Hours: My Active Orders 09/13/20 17:14 Sodium Chloride 0.65% [[place] Nasal [place]] 0 ml NASBOTH Q4H PRN 09/14/20 14:00 CMP [COMPREHENSIVE METABOLIC PN,CMP] [CHEM] Routine - Plan Plan:: Assessment and Plan: 60 y/o M admitted for Acute hypoxic respiratory failure secondary to positive COVID 19 1. Oxygen as needed, currently on 6L high flow 89% O2 saturation with goals of maintaining close to 92%, Continue with dexamethasone daily, Remdesivir 100mg for an additional two days, Combivent Q4 hrs. Received 2nd transfusion of convalescent plasma today. Encourage frequent proning and Incentive spirometry. RT will also perform Acapella (chest physical therapy) 2. Continue home dose of Carbamazepine for PMHx of Trigeminal Neuralgia. 3. For Hyponatremia, and hypochloremia, it could be dilutional or secondary to possible SIADH since patient is on carbamazepine. Recheck levels at 14:00. If remains lower can replete with 1/2 a Litre of NS at 125ml/hr. 4. For DVT ppx enoxaparin 40mg subq BID, 5. For GI ppx 40mg IV pantoprazole
[2020-09-14 14:41] LABS: BLOOD UREA NITROGEN,BUN 9 mg/dL (7.0-18.0); CARBON DIOXIDE,CO2 24.5 mmol/L (21.0-32.0); CHLORIDE,CL 91 mmol/L (98-107); GLUCOSE RANDOM 153 mg/dL (74-106); POTASSIUM,K 3.6 mmol/L (3.5-5.1); SODIUM,NA 127 mmol/L (136-148)
--- NOTE | 2020-09-14 18:01 | CR ---
Indication: Fluid overload Technique: Chest 1 view Comparison: None Findings/Impression: Cardiovascular and mediastinum: Mild cardiomegaly, at least partially related to the portable technique. Lungs and pleural space: Bilateral diffuse peripheral pulmonary opacities and interstitial prominence centrally. Correlate for pneumonia, including viral pneumonia. The appearance is less typical for pulmonary edema. Pleural effusions are difficult to exclude. Bones and soft tissues: No significant findings. Dictated by Elias Wheat MD @ Sep 14 2020 5:54PM Signed by Dr. Elias Wheat @ Sep 14 2020 5:59PM
[2020-09-14] MEDS: Sodium Chloride 0.9% 10 ML Syringe FLUSH PRN (20:30)
[2020-09-14] MEDS: Levofloxacin/Dextrose 5%-Water 750 MG in Premix Bag 1 BAG IV SCH (20:34)
--- NOTE | 2020-09-14 22:09 | PCM.SN.2 ---
- Free Text/Narrative Note: Patient transferred to ICU for closer monitoring due increasing O2 demands. Patient tolerating BIPAP well.
--- NOTE | 2020-09-14 22:17 | PN ---
THC Physician - Brief Progress HejoMRFEHAETU24/20/2020 22:09[facility] Ankur Carrington, [place] - [facility] - [facility] CAREY HANNON COVID +Date of Service 09/14/2020 22:09HP I/Events of Note Case discussed with RN. 60 year old M admitted with COVID to medical floor and [place]den sferred to ICU for increased O2 requirements. Had been on high honey NC and now on BiPAP for improved sats. Had been treated with redemsivir/decadron/plasma/abx.128/66 90s 93% in NADRecs include: hem odynmaic monitoring, BiPAP PRN, self proning as tolerated, GI and DVT prophylaxis, abx/decadron/remde sivir/lovenox, watch Na, trend Cr, glycemic monitoring, pain control, neuro checks.Interventions Jose r-Communication with other healthcare providers and/or family
[2020-09-14] MEDS: REMDESIVIR 100 MG in Sodium Chloride 0.9% 100 ML IV SCH (22:30)
[2020-09-15] MEDS: Albuterol/Ipratropium 4 GM Inhalation Spray INH SCH ×5 (00:46→17:41)
[2020-09-15] MEDS: Sodium Chloride 0.9% 10 ML Syringe FLUSH PRN ×2 (04:00)
[2020-09-15 08:03] LABS: BLOOD UREA NITROGEN,BUN 9 mg/dL (7.0-18.0); CARBON DIOXIDE,CO2 23.7 mmol/L (21.0-32.0); CHLORIDE,CL 95 mmol/L (98-107); GLUCOSE RANDOM 84 mg/dL (74-106); POTASSIUM,K 3.5 mmol/L (3.5-5.1); SODIUM,NA 130 mmol/L (136-148)
[2020-09-15] MEDS: carBAMazepine 100 MG Tab.Chew PO SCH ×4 (08:41→21:48)
[2020-09-15] MEDS: Dexamethasone 4 MG Tab PO SCH (08:41)
[2020-09-15] MEDS: Enoxaparin 40 MG/0.4 ML Syringe SUBCUT SCH ×2 (08:42→21:50)
[2020-09-15] MEDS: Pantoprazole 40 MG Vial IV SCH (08:42)
--- NOTE | 2020-09-15 10:16 | PCM.PN ---
- General Info Date of Service: 09/15/20 - Review of Systems Systems Review Comment:: shortness of breath slightly better - Patient Data Vitals - Most Recent: Last Vital Signs Temp 36.7 C 09/15/20 04:00 Pulse 84 09/14/20 16:00 Resp 18 09/15/20 07:00 BP 124/64 09/15/20 07:00 Pulse Ox 93 L 09/15/20 07:00 Weight - Most Recent: 84.005 kg I&O - Last 24 Hours: Intake & Output 09/14/20 09/15/20 09/15/20 22:59 06:59 14:59 Intake Total 2430 2260 Output Total 1800 1840 Balance 630 420 Lab Results Last 24 Hours: Laboratory Results - last 24 hr 09/14/20 09/15/20 09/15/20 Range/Units 14:08 06:30 06:46 WBC 10.61 (4.0-11.0) K/uL RBC 4.07 L (4.50-5.90) M/uL Hgb 12.7 L (13.0-17.0) g/dL Hct 36.6 L (38.0-50.0) % MCV 89.9 (80.0-98.0) fL MCH 31.2 (27.0-32.0) pg MCHC 34.7 (31.0-37.0) g/dL RDW Std Deviation 40.7 (28.0-62.0) fl RDW Coeff of Lobito 12 (11.0-15.0) % Plt Count 351 (150-400) K/uL MPV 9.20 (7.40-12.00) fL Neut % (Auto) 81.0 H (48.0-80.0) % Lymph % (Auto) 13.1 L (16.0-40.0) % [place] % (Auto) 5.7 (0.0-15.0) % Eos % (Auto) 0.1 (0.0-7.0) % Baso % (Auto) 0.1 (0.0-1.5) % Neut # (Auto) 8.6 H (1.4-5.7) K/uL Lymph # (Auto) 1.4 (0.6-2.4) K/uL [place] # (Auto) 0.6 (0.0-0.8) K/uL Eos # (Auto) 0.0 (0.0-0.7) K/uL Baso # (Auto) 0.0 (0.0-0.1) K/uL Nucleated RBC % 0.0 /100WBC Nucleated RBCs # 0 K/uL ABG pH 7.510 H (7.35-7.45) ABG pCO2 30 L (35-45) mmHG ABG pO2 58 L (75-100) mmHG ABG HCO3 24 (22-26) mEq/L ABG Total CO2 21.3 ABG Base Excess 1.5 (-2.0-2.0) Sodium 127 L (136-148) mmol/L Potassium 3.6 (3.5-5.1) mmol/L Chloride 91 L (98-107) mmol/L Carbon Dioxide 24.5 (21.0-32.0) mmol/L BUN 9 (7.0-18.0) mg/dL Creatinine 0.8 (0.8-1.3) mg/dL Est Cr Clr Drug Dosing 87.50 mL/min Estimated GFR (MDRD) > 60.0 ml/min Glucose 153 H (74-106) mg/dL POC Glucose (60-110) mg/dL Calcium 7.8 L (8.5-10.1) mg/dL Total Bilirubin 0.6 (0.2-1.0) mg/dL AST 45 H (15-37) IU/L ALT 36 (14-63) IU/L Alkaline Phosphatase 79 (46-116) U/L Total Protein 6.7 (6.4-8.2) g/dL Albumin 2.7 L (3.4-5.0) g/dL Globulin 4.0 (2.6-4.0) g/dL Albumin/Globulin Ratio 0.7 L (0.9-1.6) 09/15/20 09/15/20 Range/Units 06:46 08:04 WBC (4.0-11.0) K/uL RBC (4.50-5.90) M/uL Hgb (13.0-17.0) g/dL Hct (38.0-50.0) % MCV (80.0-98.0) fL MCH (27.0-32.0) pg MCHC (31.0-37.0) g/dL RDW Std Deviation (28.0-62.0) fl RDW Coeff of Lobito (11.0-15.0) % Plt Count (150-400) K/uL MPV (7.40-12.00) fL Neut % (Auto) (48.0-80.0) % Lymph % (Auto) (16.0-40.0) % [place] % (Auto) (0.0-15.0) % Eos % (Auto) (0.0-7.0) % Baso % (Auto) (0.0-1.5) % Neut # (Auto) (1.4-5.7) K/uL Lymph # (Auto) (0.6-2.4) K/uL [place] # (Auto) (0.0-0.8) K/uL Eos # (Auto) (0.0-0.7) K/uL Baso # (Auto) (0.0-0.1) K/uL Nucleated RBC % /100WBC Nucleated RBCs # K/uL ABG pH (7.35-7.45) ABG pCO2 (35-45) mmHG ABG pO2 (75-100) mmHG ABG HCO3 (22-26) mEq/L ABG Total CO2 ABG Base Excess (-2.0-2.0) Sodium 130 L (136-148) mmol/L Potassium 3.5 (3.5-5.1) mmol/L Chloride 95 L (98-107) mmol/L Carbon Dioxide 23.7 (21.0-32.0) mmol/L BUN 9 (7.0-18.0) mg/dL Creatinine 0.8 (0.8-1.3) mg/dL Est Cr Clr Drug Dosing 87.50 mL/min Estimated GFR (MDRD) > 60.0 ml/min Glucose 84 (74-106) mg/dL POC Glucose 82 (60-110) mg/dL Calcium 8.0 L (8.5-10.1) mg/dL Total Bilirubin 0.7 (0.2-1.0) mg/dL AST 35 (15-37) IU/L ALT 33 (14-63) IU/L Alkaline Phosphatase 76 (46-116) U/L Total Protein 6.7 (6.4-8.2) g/dL Albumin 2.6 L (3.4-5.0) g/dL Globulin 4.1 H (2.6-4.0) g/dL Albumin/Globulin Ratio 0.6 L (0.9-1.6) Med Orders - Current: Current Medications Acetaminophen (Tylenol) 650 mg PO Q4H PRN PRN Reason: Pain Last Admin: 09/13/20 20:58 Dose: 650 mg Documented by: Albuterol/Ipratropium (Combivent Respimat) 0 gm INH Q4H [facility] Carbamazepine (Tegretol) 200 mg PO QIDPCANDBED [facility] Last Admin: 09/15/20 08:41 Dose: 200 mg Documented by: Dexamethasone (Dexamethasone) 6 mg PO DAILY [facility] Last Admin: 09/15/20 08:41 Dose: 6 mg Documented by: Enoxaparin Sodium (Lovenox) 40 mg SUBCUT Q12H [facility] Last Admin: 09/15/20 08:42 Dose: 40 mg Documented by: Remdesivir 100 mg/ Sodium (Chloride) 100 mls @ 100 mls/hr IV Q24H [facility] Stop: 09/15/20 22:59 Last Admin: 09/14/20 22:30 Dose: 100 mls/hr Documented by: Levofloxacin/Dextrose 750 mg/ (Premix) 150 mls @ 100 mls/hr IV Q24H [facility] Last Admin: 09/14/20 20:34 Dose: 100 mls/hr Documented by: Ondansetron HCl (Zofran) 4 mg IVPUSH Q4H PRN PRN Reason: Nausea/Vomiting Pantoprazole Sodium (Protonix Iv) 40 mg IV DAILY [facility] Last Admin: 09/15/20 08:42 Dose: 40 mg Documented by: Sodium Chloride ([place] Nasal [place]) 0 ml NASBOTH Q4H PRN PRN Reason: DRY NOSE Last Admin: 09/14/20 13:07 Dose: 1 spray Documented by: Sodium Chloride (Saline Flush) 10 ml FLUSH ASDIRECTED PRN PRN Reason: saline flush Last Admin: 09/15/20 04:00 Dose: 10 ml Documented by: Discontinued Medications Albuterol/Ipratropium (Duoneb 3.0-0.5 Mg/3 Ml) 3 ml NEB Q4HRRT PRN PRN Reason: Shortness Of Breath/wheezing Albuterol/Ipratropium (Combivent Respimat) 0 gm INH Q4H PRN PRN Reason: Dyspnea Albuterol/Ipratropium (Combivent Respimat) 0 gm INH Q4H [facility] Last Admin: 09/15/20 04:05 Dose: 1 puff Documented by: Carbamazepine (Tegretol Tab) 200 mg PO QID [facility] Carbamazepine (Tegretol Tab) 200 mg PO QID [facility] Last Admin: 09/11/20 23:01 Dose: Not Given Documented by: Carbamazepine (Tegretol) 200 mg PO QID [facility] Enoxaparin Sodium (Lovenox) 40 mg SUBCUT Q24H [facility] Furosemide (Lasix) 20 mg IVPUSH NOW ONE Stop: 09/12/20 13:03 Last Admin: 09/12/20 13:52 Dose: 20 mg Documented by: Remdesivir 200 mg/ Sodium (Chloride) 250 mls @ 250 mls/hr IV BEDTIME [facility] Stop: 09/11/20 21:59 Remdesivir 200 mg/ Sodium (Chloride) 250 mls @ 250 mls/hr IV BEDTIME [facility] Stop: 09/11/20 20:59 Last Admin: 09/11/20 22:03 Dose: 250 mls/hr Documented by: Influenza Virus Vaccine (Pharmacy To Dose - Influenza Vaccine) 1 each IM ONETIME ONE Stop: 09/11/20 20:46 Last Admin: 09/11/20 22:15 Dose: Not Given Documented by: Influenza Virus Vaccine (Afluria Quad 2020- (3yr Up)) 60 mcg IM .ONCE ONE Stop: 09/12/20 10:01 Sodium Phosphate (Neutra-Phos) 250 mg PO ONETIME ONE Stop: 09/11/20 20:19 Last Admin: 09/11/20 21:56 Dose: 250 mg Documented by: Trazodone HCl (Trazodone) 50 mg PO ONETIME ONE Stop: 09/12/20 23:25 Last Admin: 09/12/20 23:38 Dose: 50 mg Documented by: - Exam General: Alert, Oriented Neck: Supple Lungs: Decreased Breath Sounds Cardiovascular: Regular Rate, Regular Rhythm GI/Abdominal Exam: Soft, Non-Tender, No Distention Extremities: Non-Tender, No Pedal Edema Skin: Warm, Dry, Intact Neurological: No New Focal Deficit Sepsis Event Note - Evaluation Sepsis Screening Result: No Definite Risk - Focused Exam Vital Signs: Vital Signs Temp Resp BP Pulse Ox 09/15/20 07:00 18 124/64 93 L 09/15/20 06:00 18 125/62 93 L 09/15/20 05:00 18 94 L 09/15/20 04:00 36.7 C 19 124/57 L 94 L 09/15/20 03:00 17 110/47 L 94 L 09/15/20 02:00 24 H 128/62 94 L 09/15/20 01:00 25 H 139/62 92 L 09/15/20 00:00 36.8 C 22 H 134/61 92 L 09/14/20 23:00 12 118/50 L 94 L - Problem List Review Problem List Initiated/Reviewed/Updated: Yes - My Orders Last 24 Hours: My Active Orders 09/14/20 19:00 Sodium Chloride 0.9% [Saline Flush] 10 ml FLUSH ASDIRECTED PRN 09/14/20 19:32 Transfer Patient (Change bed) [ADT] Routine - Plan Plan:: Assessment and Plan: 60 y/o M admitted for Acute hypoxic respiratory failure secondary to positive COVID 19 1. Acute hypoxic respiratory failure: currenlty on NIV at 50% O2, continue to wean as tolerated. 2. COVID: continue dexamethason, and remdesivir. 3. Oxygen as needed, currently on 6L high flow 89% O2 saturation with goals of maintaining close to 92%, Continue with dexamethasone daily, Remdesivir 100mg for an additional two days, Combivent Q4 hrs. Received 2nd transfusion of convalescent plasma today. Encourage frequent proning and Incentive spirometry. RT will also perform Acapella (chest physical therapy) 4. Continue home dose of Carbamazepine for PMHx of Trigeminal Neuralgia. 5. For Hyponatremia, and hypochloremia, improving with fluid restriction 6. For DVT ppx enoxaparin 40mg subq BID, 7. For GI ppx 40mg IV pantoprazole
--- NOTE | 2020-09-15 11:50 | PN ---
THC Physician - Brief Progress [id number]/21/2020 11:40[facility] Ankur danielson, [place] - [facility] - CAREY OLSEN COVID +Date of Service 09/15/2020 11:40HP I/Events of Note Pt seen during morning rounds with RN, Ita BOYKIN PNA. received plasma x2, on re mdesivir, decadron.Acute hypoxemic respiratory failure on BiPAp 8/5/50% moderately tacypneic.ABG 7.52 /30/58/HCO3 Hemodynamically stableOther meds : Lovenox 40 BID, Levaquin, ProtonixRecommend to keep e uvolemic. Consider Adding adjunct vitamins C,D, and Zinc(although efficacy unproven)Interventions Int ermediate-Other: daily rounds
[2020-09-15] MEDS: Levofloxacin/Dextrose 5%-Water 750 MG in Premix Bag 1 BAG IV SCH ×2 (19:45→20:13)
[2020-09-15] MEDS: REMDESIVIR 100 MG in Sodium Chloride 0.9% 100 ML IV SCH (21:53)
[2020-09-15] MEDS: Albuterol/Ipratropium 3.0-0.5 MG/3 ML Neb Soln NEB SCH (22:21)
[2020-09-16] MEDS: Albuterol/Ipratropium 3.0-0.5 MG/3 ML Neb Soln NEB SCH ×3 (01:50→09:03)
[2020-09-16 06:41] LABS: BLOOD UREA NITROGEN,BUN 10 mg/dL (7.0-18.0); CARBON DIOXIDE,CO2 26.6 mmol/L (21.0-32.0); CHLORIDE,CL 97 mmol/L (98-107); GLUCOSE RANDOM 96 mg/dL (74-106); SODIUM,NA 132 mmol/L (136-148)
[2020-09-16] MEDS: carBAMazepine 100 MG Tab.Chew PO SCH ×2 (08:13→12:20)
[2020-09-16] MEDS: Dexamethasone 4 MG Tab PO SCH (08:14)
[2020-09-16] MEDS: Enoxaparin 40 MG/0.4 ML Syringe SUBCUT SCH (08:23)
[2020-09-16] MEDS: Pantoprazole 40 MG Vial IV SCH (08:24)
--- NOTE | 2020-09-16 09:08 | PCM.PN ---
- General Info Date of Service: 09/16/20 Subjective Update: Mr. Hannah is a 60 y/o gentleman being treated for acute hypoxic respiratory failure 2/2 covid 19. Competed 2x doses of coalescent plasma and is on day 03/30 of Remdesivir. Overnight, he remained tachypneic and not tolerating high flow well, requiring 15/10 Bipap with an Fio2 55%. This morning remains optimistic, but is tired and resting in bed on Bipap. - Review of Systems General: Reports: No Symptoms HEENT: Reports: No Symptoms Pulmonary: Reports: Shortness of Breath (requiring resp support with bipap). Denies: Pleuritic Chest Pain, Sputum, Wheezing Cardiovascular: Reports: No Symptoms Gastrointestinal: Reports: No Symptoms Genitourinary: Reports: No Symptoms Musculoskeletal: Reports: No Symptoms Skin: Reports: No Symptoms Neurological: Reports: No Symptoms Psychiatric: Reports: No Symptoms - Patient Data Vitals - Most Recent: Last Vital Signs Temp 99.8 F 09/16/20 08:00 Pulse 94 09/16/20 06:59 Resp 30 H 09/16/20 08:00 BP 127/55 L 09/16/20 08:00 Pulse Ox 86 L 09/16/20 08:00 Weight - Most Recent: 182 lb 3.2 oz I&O - Last 24 Hours: Intake & Output 09/15/20 09/16/20 09/16/20 22:59 06:59 14:59 Intake Total 1410 550 Output Total 1720 850 Balance -310 -300 Lab Results Last 24 Hours: Laboratory Results - last 24 hr 09/15/20 09/15/20 09/16/20 Range/Units 18:22 21:55 05:45 WBC 12.30 H (4.0-11.0) K/uL RBC 3.94 L (4.50-5.90) M/uL Hgb 12.3 L (13.0-17.0) g/dL Hct 35.9 L (38.0-50.0) % MCV 91.1 (80.0-98.0) fL MCH 31.2 (27.0-32.0) pg MCHC 34.3 (31.0-37.0) g/dL RDW Std Deviation 42.0 (28.0-62.0) fl RDW Coeff of [place]obito 13 (11.0-15.0) % Plt Count 416 H (150-400) K/uL MPV 8.90 (7.40-12.00) fL Neut % (Auto) 82.4 H (48.0-80.0) % Lymph % (Auto) 11.5 L (16.0-40.0) % [place] % (Auto) 5.4 (0.0-15.0) % Eos % (Auto) 0.6 (0.0-7.0) % Baso % (Auto) 0.1 (0.0-1.5) % Neut # (Auto) 10.2 H (1.4-5.7) K/uL Lymph # (Auto) 1.4 (0.6-2.4) K/uL [place] # (Auto) 0.7 (0.0-0.8) K/uL Eos # (Auto) 0.1 (0.0-0.7) K/uL Baso # (Auto) 0.0 (0.0-0.1) K/uL Nucleated RBC % 0.0 /100WBC Nucleated RBCs # 0 K/uL ABG pH 7.502 H (7.35-7.45) ABG pCO2 30 L (35-45) mmHG ABG pO2 56 L (75-100) mmHG ABG HCO3 23 (22-26) mEq/L ABG Total CO2 20.7 ABG Base Excess 1.0 (-2.0-2.0) Sodium (136-148) mmol/L Potassium (3.5-5.1) mmol/L Chloride (98-107) mmol/L Carbon Dioxide (21.0-32.0) mmol/L BUN (7.0-18.0) mg/dL Creatinine (0.8-1.3) mg/dL Est Cr Clr Drug Dosing mL/min Estimated GFR (MDRD) ml/min Glucose (74-106) mg/dL POC Glucose 123 H (60-110) mg/dL Calcium (8.5-10.1) mg/dL Total Bilirubin (0.2-1.0) mg/dL AST (15-37) IU/L ALT (14-63) IU/L Alkaline Phosphatase (46-116) U/L Total Protein (6.4-8.2) g/dL Albumin (3.4-5.0) g/dL Globulin (2.6-4.0) g/dL Albumin/Globulin Ratio (0.9-1.6) 09/16/20 09/16/20 Range/Units 05:45 07:53 WBC (4.0-11.0) K/uL RBC (4.50-5.90) M/uL Hgb (13.0-17.0) g/dL Hct (38.0-50.0) % MCV (80.0-98.0) fL MCH (27.0-32.0) pg MCHC (31.0-37.0) g/dL RDW Std Deviation (28.0-62.0) fl RDW Coeff of [place] (11.0-15.0) % Plt Count (150-400) K/uL MPV (7.40-12.00) fL Neut % (Auto) (48.0-80.0) % Lymph % (Auto) (16.0-40.0) % [place] % (Auto) (0.0-15.0) % Eos % (Auto) (0.0-7.0) % Baso % (Auto) (0.0-1.5) % Neut # (Auto) (1.4-5.7) K/uL Lymph # (Auto) (0.6-2.4) K/uL [place] # (Auto) (0.0-0.8) K/uL Eos # (Auto) (0.0-0.7) K/uL Baso # (Auto) (0.0-0.1) K/uL Nucleated RBC % /100WBC Nucleated RBCs # K/uL ABG pH (7.35-7.45) ABG pCO2 (35-45) mmHG ABG pO2 (75-100) mmHG ABG HCO3 (22-26) mEq/L ABG Total CO2 ABG Base Excess (-2.0-2.0) Sodium 132 L (136-148) mmol/L Potassium 4.0 (3.5-5.1) mmol/L Chloride 97 L (98-107) mmol/L Carbon Dioxide 26.6 (21.0-32.0) mmol/L BUN 10 (7.0-18.0) mg/dL Creatinine 1.0 (0.8-1.3) mg/dL Est Cr Clr Drug Dosing 70.00 mL/min Estimated GFR (MDRD) > 60.0 ml/min Glucose 96 (74-106) mg/dL POC Glucose 88 (60-110) mg/dL Calcium 8.2 L (8.5-10.1) mg/dL Total Bilirubin 0.8 (0.2-1.0) mg/dL AST 31 (15-37) IU/L ALT 34 (14-63) IU/L Alkaline Phosphatase 81 (46-116) U/L Total Protein 6.7 (6.4-8.2) g/dL Albumin 2.6 L (3.4-5.0) g/dL Globulin 4.1 H (2.6-4.0) g/dL Albumin/Globulin Ratio 0.6 L (0.9-1.6) Med Orders - Current: Current Medications Acetaminophen (Tylenol) 650 mg PO Q4H PRN PRN Reason: Pain Last Admin: 09/13/20 20:58 Dose: 650 mg Documented by: Albuterol/Ipratropium (Duoneb 3.0-0.5 Mg/3 Ml) 3 ml NEB Q4HRRT [facility] Last Admin: 09/16/20 06:04 Dose: 3 ml Documented by: Carbamazepine (Tegretol) 200 mg PO QIDPCANDBED [facility] Last Admin: 09/16/20 08:13 Dose: 200 mg Documented by: Dexamethasone (Dexamethasone) 6 mg PO DAILY [facility] Last Admin: 09/16/20 08:14 Dose: 6 mg Documented by: Enoxaparin Sodium (Lovenox) 40 mg SUBCUT Q12H [facility] Last Admin: 09/16/20 08:23 Dose: 40 mg Documented by: Levofloxacin/Dextrose 750 mg/ (Premix) 150 mls @ 100 mls/hr IV Q24H [facility] Last Admin: 09/15/20 20:13 Dose: 100 mls/hr Documented by: Ondansetron HCl (Zofran) 4 mg IVPUSH Q4H PRN PRN Reason: Nausea/Vomiting Pantoprazole Sodium (Protonix Iv) 40 mg IV DAILY [facility] Last Admin: 09/16/20 08:24 Dose: 40 mg Documented by: Sodium Chloride ([place] Nasal [place]) 0 ml NASBOTH Q4H PRN PRN Reason: DRY NOSE Last Admin: 09/14/20 13:07 Dose: 1 spray Documented by: Sodium Chloride (Saline Flush) 10 ml FLUSH ASDIRECTED PRN PRN Reason: saline flush Last Admin: 09/15/20 04:00 Dose: 10 ml Documented by: Discontinued Medications Albuterol/Ipratropium (Duoneb 3.0-0.5 Mg/3 Ml) 3 ml NEB Q4HRRT PRN PRN Reason: Shortness Of Breath/wheezing Albuterol/Ipratropium (Combivent Respimat) 0 gm INH Q4H PRN PRN Reason: Dyspnea Albuterol/Ipratropium (Combivent Respimat) 0 gm INH Q4H [facility] Last Admin: 09/15/20 04:05 Dose: 1 puff Documented by: Albuterol/Ipratropium (Combivent Respimat) 0 gm INH Q4H [facility] Last Admin: 09/15/20 17:41 Dose: 1 inh Documented by: Carbamazepine (Tegretol Tab) 200 mg PO QID [facility] Carbamazepine (Tegretol Tab) 200 mg PO QID [facility] Last Admin: 09/11/20 23:01 Dose: Not Given Documented by: Carbamazepine (Tegretol) 200 mg PO QID [facility] Enoxaparin Sodium (Lovenox) 40 mg SUBCUT Q24H [facility] Furosemide (Lasix) 20 mg IVPUSH NOW ONE Stop: 09/12/20 13:03 Last Admin: 09/12/20 13:52 Dose: 20 mg Documented by: Remdesivir 200 mg/ Sodium (Chloride) 250 mls @ 250 mls/hr IV BEDTIME [facility] Stop: 09/11/20 21:59 Remdesivir 200 mg/ Sodium (Chloride) 250 mls @ 250 mls/hr IV BEDTIME [facility] Stop: 09/11/20 20:59 Last Admin: 09/11/20 22:03 Dose: 250 mls/hr Documented by: Remdesivir 100 mg/ Sodium (Chloride) 100 mls @ 100 mls/hr IV Q24H [facility] Stop: 09/15/20 22:59 Last Admin: 09/15/20 21:53 Dose: 100 mls/hr Documented by: Influenza Virus Vaccine (Pharmacy To Dose - Influenza Vaccine) 1 each IM ONETIME ONE Stop: 09/11/20 20:46 Last Admin: 09/11/20 22:15 Dose: Not Given Documented by: Influenza Virus Vaccine (Afluria Quad (3yr Up)) 60 mcg IM .ONCE ONE Stop: 09/12/20 10:01 Sodium Phosphate (Neutra-Phos) 250 mg PO ONETIME ONE Stop: 09/11/20 20:19 Last Admin: 09/11/20 21:56 Dose: 250 mg Documented by: Trazodone HCl (Trazodone) 50 mg PO ONETIME ONE Stop: 09/12/20 23:25 Last Admin: 09/12/20 23:38 Dose: 50 mg Documented by: - Exam Quality Assessment: Supplemental Oxygen (Bipap) General: Alert, Oriented, Cooperative, Mild Distress HEENT: Pupils Equal, Pupils Reactive, EOMI, Mucous Membr. Moist/[place] Neck: Supple, Trachea Midline, No JVD Lungs: Decreased Breath Sounds, Crackles Cardiovascular: Regular Rate, Regular Rhythm, No Murmurs GI/Abdominal Exam: Normal Bowel Sounds, Soft, Non-Tender, No Organomegaly Extremities: Normal Inspection, Normal Range of Motion, No Pedal Edema, Normal Capillary Refill Peripheral Pulses: 2+: Dorsalis Pedis (L), Dorsalis Pedis (R) Skin: Warm, Dry, Intact Neurological: No New Focal Deficit Psy/Mental Status: Alert, Normal Affect, Normal Mood Sepsis Event Note - Evaluation Sepsis Screening Result: Severe Sepsis Risk - Focused Exam Vital Signs: Vital Signs Temp Pulse Resp BP Pulse Ox 09/16/20 08:00 99.8 F 30 H 127/55 L 86 L 09/16/20 06:59 94 30 H 95/38 L 93 L 09/16/20 06:07 89 32 H 117/53 L 93 L 09/16/20 05:03 88 24 H 112/67 94 L 09/16/20 04:05 98.5 F 97 26 H 123/70 95 09/16/20 03:17 95 24 H 128/68 91 L 09/16/20 02:00 108 H 28 H 118/64 93 L 09/16/20 01:00 97 29 H 125/70 91 L 09/16/20 00:01 99.1 F 93 31 H 117/74 91 L 09/15/20 23:01 93 27 H 113/57 L 91 L 09/15/20 22:01 98 F 97 31 H 120/61 90 L 09/15/20 21:16 96 132/71 - Problem List & Annotations (1) Acute hypoxemic respiratory failure due to COVID-19 SNOMED Code(s): 739357195 Code(s): U07.1 - COVID-19; J96.01 - ACUTE RESPIRATORY FAILURE WITH HYPOXIA Status: Acute Current Visit: Yes (2) Trigeminal neuralgia of right side of face SNOMED Code(s): 06895597 Code(s): G50.0 - TRIGEMINAL NEURALGIA Status: Chronic Current Visit: Yes (3) Hyponatremia SNOMED Code(s): 78963105 Code(s): E87.1 - HYPO-OSMOLALITY AND HYPONATREMIA Status: Acute Current Visit: Yes (4) Hypochloremia SNOMED Code(s): 80319418 Code(s): E87.8 - OTH DISORDERS OF ELECTROLYTE AND FLUID BALANCE, NEC Status: Acute Current Visit: Yes - Problem List Review Problem List Initiated/Reviewed/Updated: Yes - My Orders Last 24 Hours: My Active Orders 09/17/20 05:11 CBC WITH AUTO DIFF [HEME] AM COMPREHENSIVE METABOLIC PN,CMP [CHEM] AM 09/18/20 05:11 CBC WITH AUTO DIFF [HEME] AM COMPREHENSIVE METABOLIC PN,CMP [CHEM] AM 09/19/20 05:11 CBC WITH AUTO DIFF [HEME] AM COMPREHENSIVE METABOLIC PN,CMP [CHEM] AM 09/20/20 05:11 COMPREHENSIVE METABOLIC PN,CMP [CHEM] AM - Plan Plan:: Assessment and Plan: 60 y/o M admitted for Acute hypoxic respiratory failure secondary to positive COVID 19 1. Acute hypoxic respiratory failure: was tachypnic last night, with RR 20's- 30's, increased Bipap 15/10 with Fi02 55%, with 02 sat's above 91%. Continue to wean as tolerated. 2. COVID: continue dexamethason for total of 10 days, 1x daily, last dose 100mg of remdesivir today. Has competed 2x doses of convalescent plasma, Duonebs Q4hrs, Encourage frequent proning and Incentive spirometry. RT will also perform Acapella (chest physical therapy) 3. Continue home dose of Carbamazepine for PMHx of Trigeminal Neuralgia. 4. Hyponatremia, and hypochloremia, have improved with Na 132, and Cl 97. Continue with fluid restriction of 1.5 L 5. For DVT ppx enoxaparin 40mg subq BID, 6. For GI ppx 40mg IV pantoprazole
--- NOTE | 2020-09-16 12:14 | PN ---
THC Physician - Brief Progress [id number]/22/2020 12:10[facility] [place] - [facility] - [facility] CAREY HANNON COVID +Date of Service 09/16/2020 12:10HP I/Events of Note eICU update:Discussed with excellent bedside physician in regards to acute hypoxic r espiratory failure secondary to COVID-19. Patient continues to remain on BiPAP with tachypnea in the 30s and sats in the low 90s.Plan:-We will recommend to continue to increase the EPAP as tolerated ke eping a delta of 5(currently at 15/10- recommend 17/12 and so on)-Agree with advising patient to self prone/side position as tolerated-Continue to keep patient euvolemic as much as possible-Low threshol d for intubation if patient contnues to have significant work of breathing/extremis while on bipap.In terventions Major-Hypoxemia - evaluation and management, Respiratory failure - evaluation and managem ent
[2020-09-16] MEDS ORDERED: Midazolam 1 MG/ML 2 ML SDV ONE (13:24)
[2020-09-16] MEDS ORDERED: fentaNYL 100 MCG/2 ML SDV ONE (13:24)
[2020-09-16] MEDS ORDERED: propofoL 100 ML ONE ×2 (13:25→15:46)
--- NOTE | 2020-09-16 14:35 | PN ---
THC Physician - Brief Progress [id number]/22/2020 14:29[facility] Ankur Carrington, RETA - ZURI ([facility]) - [facility] CAREY HANNON LUCRETIA +Date of Service 09/16/2020 14:29HP I/Events of Note eICU update:Called by bedside team given patient with worsening hypoxia leading to i ntubation. Patient continues to have borderline sats at 92% on current vent settings (PEEP 10 and FiO 2 100%). Plan:-CXR being done now. -Will recommend to go up to 15 peep-Recommend deep sedation with p ropofol/fentanyl to RASS -4-If no improvement after the above 2 rec's; Will need to give consideratio n to paralytics and proning-if SpO2 improves after PEEP change, recommend getting ABG in one hour. If no improvement, will need ABG now. -Recommend keeping head of the bed at 30 degrees and starting PPI /H2 nannette (if not already started). Chlorhexidine mouth wash.Interventions Major-Hypoxemia - evalua tion and management, Respiratory failure - evaluation and management
--- NOTE | 2020-09-16 15:13 | CR ---
INDICATION: Post intubation COMPARISON: September 14, 2020 TECHNIQUE: Single-view portable chest radiograph FINDINGS: TUBES AND LINES: Endotracheal tube normally located HEART AND MEDIASTINUM: The heart size is normal. The mediastinal contour appears normal for patient age. LUNGS AND PLEURAL SPACES: Moderate diffuse multifocal airspace disease unchanged.There pleural spaces are unremarkable. OSSEOUS STRUCTURES: Age-appropriate appearance. No acute focal finding. IMPRESSION: Endotracheal tube normally located. Moderate diffuse multifocal airspace disease unchanged. Dictated by Adelso Thompson MD @ Sep 16 2020 3:09PM Signed by Dr. Adelso Thompson @ Sep 16 2020 3:12PM
--- NOTE | 2020-09-16 15:16 | PCM.SN.2 ---
- Free Text/Narrative Note: Anesthesia time [id number]. ASA IV E. Called to ICU for intubation of patient with COVID respiratory failure. Pt on Bi pip +15/10, 100% FiO2. SAT maintaining in low 90's, but patient having significant and worsening work of breathing. RR 30's. SAT drops to 78-80% when on high-flow nasal canula over <5 minutes. Discussed case in-depth with Dr. Alex Frausto. A follow-up ABG portrayed further decompensation, and the decision was made to intubate. Discussed procedure and sedation with patient, who had been able to contact his . Both had discussed with Dr. Frausto. See EMR/ nursing record for VS and times. Rapid sequence induction took place around 1418. 60mg propofol, 50mcg fentanyl, 2mg versed 140mg of Succinylcholine given. DL x 1 with [place]-go videoscope with S3 blade. Gd 1 view. 8.0 ETT in without resistance, visualized passing vocal chords. Balloon inflated with air (cuff pressure verified shortly after with sphigmomanometer). ETT position verified with asuc. of bilat. breath sounds, color-change to ETCO2, and persistent ETCO2 on monitor. Verified shortly after with CXR. Initial vent. settings of 550 TV, rate of 22, and PEEP 10. Initial dip in O2 SAT to 80's rectified over following 10 min to 90's. Pt sedated on 25 mcg/kg/hr propofol, and 70mg rocuronium given. SBP fell quickly from 110's to low 90's, levophed started at 2mcg/min and titrated to effect. Full report to Dr. Frausto, RT, and RN, including all medications given and initial ventilator settings.
--- NOTE | 2020-09-19 14:28 | PCM.DCSUM1 ---
<Mercy Kiser - Last Filed: 09/19/20 14:28> Discharge Summary - Hospital Course Brief History: 60 y/o M with PMH of trigeminal neuralgia, who was transferred from [facility] secondary to hypoxia due to COVID. . Patient had come in to be evaluated for SOB, weakness. He was found to be sating 85% on RA, was started on oxygen, iniatlly was needing only 2L , later requirment went up to 5-6Lts. Patients inflammatory markers were elevated, CBC, CMP was unremarkable, CTA chest was negative for PE but did show COVID Pneumonia. Patient was transferred to [facility] for further management. Patient has h/o travel to [place] and thinks he got the virus there. Patient denies any fever, chills, headache, change in vision, syncope or near syncope, any chest pain, back pain, abdominal pain, nausea, vomiting, diarrhea, constipation or dysuria. Has not noted any blood in urine or stool. Patient has been eating and drinking appropriately. - Discharge Data Discharge Date: 09/16/20 Discharge Disposition: DC/Tfer to Acute Hospital 02 Condition: Critical - Referral to Home Health Primary Care Physician: PCP None - Discharge Diagnosis/Problem(s) (1) Acute hypoxemic respiratory failure due to COVID-19 SNOMED Code(s): 270186140 ICD Code: U07.1 - COVID-19; J96.01 - ACUTE RESPIRATORY FAILURE WITH HYPOXIA Status: Acute (2) Trigeminal neuralgia of right side of face SNOMED Code(s): 88691962 ICD Code: G50.0 - TRIGEMINAL NEURALGIA Status: Chronic (3) Hyponatremia SNOMED Code(s): 73288934 ICD Code: E87.1 - HYPO-OSMOLALITY AND HYPONATREMIA Status: Acute (4) Hypochloremia SNOMED Code(s): 55440944 ICD Code: E87.8 - OTH DISORDERS OF ELECTROLYTE AND FLUID BALANCE, NEC Status: Acute - Patient Summary/Data Hospital Course: Admitted for COVID 19, treated with standard covid 19 protocol with Remdesivir course and 2 units of Covalescent Plasma. Pt's respiratory status continued to decline therefore put on Bipap in the ICU. Tried proning , but unable to wean, patient respiratory rate continued to climb, patient was becoming tired on the Bipap. Therefore, discussed need for intubation. Pt initially declined, but as condition worsened he felt it would be appropriate to avoid any chances of an anoxic brain injury. Was successfully intubated under anesthesia. Pt's condition was worsening so felt best to transfer to a higher level of care facility. - Discharge Plan Home Medications: Home Meds carBAMazepine [Carbamazepine] 200 mg PO Q6HR 09/11/20 [History] Referrals: Bryce Steele ACCOUNTING MANAGER [Ordering Only Provider] - 09/28/20 12:30 pm (Please arrive 15 minutes early with your identification, insurance cards and your own facemask.) - Discharge Summary/Plan Comment DC Time >30 min.: Yes - Patient Data Vitals - Most Recent: Last Vital Signs Temp 99 F 09/16/20 15:41 Pulse 94 09/16/20 06:59 Resp 34 H 09/16/20 15:41 BP 125/64 09/16/20 15:41 Pulse Ox 95 09/16/20 15:41 Weight - Most Recent: 82.645 kg Med Orders - Current: Current Medications Discontinued Medications Acetaminophen (Tylenol) 650 mg PO Q4H PRN PRN Reason: Pain Last Admin: 09/13/20 20:58 Dose: 650 mg Documented by: Albuterol/Ipratropium (Duoneb 3.0-0.5 Mg/3 Ml) 3 ml NEB Q4HRRT PRN PRN Reason: Shortness Of Breath/wheezing Albuterol/Ipratropium (Combivent Respimat) 0 gm INH Q4H PRN PRN Reason: Dyspnea Albuterol/Ipratropium (Combivent Respimat) 0 gm INH Q4H TRACEY Last Admin: 09/15/20 04:05 Dose: 1 puff Documented by: Albuterol/Ipratropium (Combivent Respimat) 0 gm INH Q4H TRACEY Last Admin: 09/15/20 17:41 Dose: 1 inh Documented by: Albuterol/Ipratropium (Duoneb 3.0-0.5 Mg/3 Ml) 3 ml NEB Q4HRRT TRACEY Last Admin: 09/16/20 09:03 Dose: 3 ml Documented by: Carbamazepine (Tegretol Tab) 200 mg PO QID TRACEY Carbamazepine (Tegretol Tab) 200 mg PO QID TRACEY Last Admin: 09/11/20 23:01 Dose: Not Given Documented by: Carbamazepine (Tegretol) 200 mg PO QID TRACEY Carbamazepine (Tegretol) 200 mg PO [facility]PCANDBED [facility] Last Admin: 09/16/20 12:20 Dose: 200 mg Documented by: Dexamethasone (Dexamethasone) 6 mg PO DAILY [facility] Last Admin: 09/16/20 08:14 Dose: 6 mg Documented by: Enoxaparin Sodium (Lovenox) 40 mg SUBCUT Q24H [facility] Enoxaparin Sodium (Lovenox) 40 mg SUBCUT Q12H [facility] Last Admin: 09/16/20 08:23 Dose: 40 mg Documented by: Fentanyl (Sublimaze) Confirm Administered Dose 100 mcg .ROUTE .STK-MED ONE Stop: 09/16/20 13:25 Furosemide (Lasix) [facility] Stop: 09/12/20 13:03 Last Admin: 09/12/20 13:52 Dose: 20 mg Documented by: Remdesivir 200 mg/ Sodium (Chloride) 250 mls @ 250 mls/hr IV BEDTIME [facility] Stop: 09/11/20 21:59 Remdesivir 200 mg/ Sodium (Chloride) 250 mls @ 250 mls/hr IV BEDTIME [facility] Stop: 09/11/20 20:59 Last Admin: 09/11/20 22:03 Dose: 250 mls/hr Documented by: Remdesivir 100 mg/ Sodium (Chloride) 100 mls @ 100 mls/hr IV Q24H [facility] Stop: 09/15/20 22:59 Last Admin: 09/15/20 21:53 Dose: 100 mls/hr Documented by: Levofloxacin/Dextrose 750 mg/ (Premix) 150 mls @ 100 mls/hr IV Q24H [facility] Last Admin: 09/15/20 20:13 Dose: 100 mls/hr Documented by: Propofol (Diprivan 100 Ml) Confirm Administered Dose 100 mls @ as directed .ROUTE .STK-MED ONE Stop: 09/16/20 13:26 Last Admin: 09/16/20 14:20 Dose: 12.5 mls/hr Documented by: Norepinephrine Bitartrate (Norepinephr-0.9% Nacl 4 Mg/250) Confirm Administered Dose 4 mg in 250 mls @ as directed IV .STK-MED ONE Stop: 09/16/20 14:01 Last Admin: 09/16/20 14:24 Dose: 7.5 mls/hr Documented by: Propofol (Diprivan 100 Ml) Confirm Administered Dose 100 mls @ as directed .ROUTE .STK-MED ONE Stop: 09/16/20 15:47 Last Admin: 09/16/20 18:42 Dose: Not Given Documented by: Influenza Virus Vaccine (Pharmacy To Dose - Influenza Vaccine) 1 each IM ONETIME ONE Stop: 09/11/20 20:46 Last Admin: 09/11/20 22:15 Dose: Not Given Documented by: Influenza Virus Vaccine (Afluria Quad (3yr Up)) 60 mcg IM .ONCE ONE Stop: 09/12/20 10:01 Midazolam HCl (Versed 1 Mg/Ml) Confirm Administered Dose 2 mg .ROUTE .STK-MED ONE Stop: 09/16/20 13:25 Ondansetron HCl (Zofran) 4 mg IVPUSH Q4H PRN PRN Reason: Nausea/Vomiting Pantoprazole Sodium (Protonix Iv) 40 mg IV DAILY TRACEY Last Admin: 09/16/20 08:24 Dose: 40 mg Documented by: Sodium Chloride ([place] Nasal Christmas) 0 ml NASBOTH Q4H PRN PRN Reason: DRY NOSE Last Admin: 09/14/20 13:07 Dose: 1 spray Documented by: Sodium Chloride (Saline Flush) 10 ml FLUSH ASDIRECTED PRN PRN Reason: saline flush Last Admin: 09/15/20 04:00 Dose: 10 ml Documented by: Sodium Phosphate (Neutra-Phos) 250 mg PO ONETIME ONE Stop: 09/11/20 20:19 Last Admin: 09/11/20 21:56 Dose: 250 mg Documented by: Trazodone HCl (Trazodone) 50 mg PO ONETIME ONE Stop: 09/12/20 23:25 Last Admin: 09/12/20 23:38 Dose: 50 mg Documented by: <Vince Raines - Last Filed: 09/19/20 22:32> Discharge Summary - Referral to Home Health Primary Care Physician: PCP None - Patient Data Vitals - Most Recent: Last Vital Signs Temp 37.2 C 09/16/20 15:41 Pulse 94 09/16/20 06:59 Resp 34 H 09/16/20 15:41 BP 125/64 09/16/20 15:41 Pulse Ox 95 09/16/20 15:41 Med Orders - Current: Current Medications Discontinued Medications Acetaminophen (Tylenol) 650 mg PO Q4H PRN PRN Reason: Pain Last Admin: 09/13/20 20:58 Dose: 650 mg Documented by: Albuterol/Ipratropium (Duoneb 3.0-0.5 Mg/3 Ml) 3 ml NEB Q4HRRT PRN PRN Reason: Shortness Of Breath/wheezing Albuterol/Ipratropium (Combivent Respimat) 0 gm INH Q4H PRN PRN Reason: Dyspnea Albuterol/Ipratropium (Combivent Respimat) 0 gm INH Q4H [facility] Last Admin: 09/15/20 04:05 Dose: 1 puff Documented by: Albuterol/Ipratropium (Combivent Respimat) 0 gm INH Q4H [facility] Last Admin: 09/15/20 17:41 Dose: 1 inh Documented by: Albuterol/Ipratropium (Duoneb 3.0-0.5 Mg/3 Ml) 3 ml NEB Q4HRRT [facility] Last Admin: 09/16/20 09:03 Dose: 3 ml Documented by: Carbamazepine (Tegretol Tab) 200 mg PO QID [facility] Carbamazepine (Tegretol Tab) 200 mg PO QID [facility] Last Admin: 09/11/20 23:01 Dose: Not Given Documented by: Carbamazepine (Tegretol) 200 mg PO QID [facility] Carbamazepine (Tegretol) 200 mg PO QIDPCANDBED [facility] Last Admin: 09/16/20 12:20 Dose: 200 mg Documented by: Dexamethasone (Dexamethasone) 6 mg PO DAILY [facility] Last Admin: 09/16/20 08:14 Dose: 6 mg Documented by: Enoxaparin Sodium (Lovenox) 40 mg SUBCUT Q24H [facility] Enoxaparin Sodium (Lovenox) 40 mg SUBCUT Q12H [facility] Last Admin: 09/16/20 08:23 Dose: 40 mg Documented by: Fentanyl (Sublimaze) Confirm Administered Dose 100 mcg .ROUTE .STK-MED ONE Stop: 09/16/20 13:25 Furosemide (Lasix) 20 mg IVPUSH NOW ONE Stop: 09/12/20 13:03 Last Admin: 09/12/20 13:52 Dose: 20 mg Documented by: Remdesivir 200 mg/ Sodium (Chloride) 250 mls @ 250 mls/hr IV BEDTIME TRACEY Stop: 09/11/20 21:59 Remdesivir 200 mg/ Sodium (Chloride) 250 mls @ 250 mls/hr IV BEDTIME TRACEY Stop: 09/11/20 20:59 Last Admin: 09/11/20 22:03 Dose: 250 mls/hr Documented by: Remdesivir 100 mg/ Sodium (Chloride) 100 mls @ 100 mls/hr IV Q24H [facility] Stop: 09/15/20 22:59 Last Admin: 09/15/20 21:53 Dose: 100 mls/hr Documented by: Levofloxacin/Dextrose 750 mg/ (Premix) 150 mls @ 100 mls/hr IV Q24H [facility] Last Admin: 09/15/20 20:13 Dose: 100 mls/hr Documented by: Propofol (Diprivan 100 Ml) Confirm Administered Dose 100 mls @ as directed .ROUTE .STK-MED ONE Stop: 09/16/20 13:26 Last Admin: 09/16/20 14:20 Dose: 12.5 mls/hr Documented by: Norepinephrine Bitartrate (Norepinephr-0.9% Nacl 4 Mg/250) Confirm Administered Dose 4 mg in 250 mls @ as directed IV .STK-MED ONE Stop: 09/16/20 14:01 Last Admin: 09/16/20 14:24 Dose: 7.5 mls/hr Documented by: Propofol (Diprivan 100 Ml) Confirm Administered Dose 100 mls @ as directed .ROUTE .STK-MED ONE Stop: 09/16/20 15:47 Last Admin: 09/16/20 18:42 Dose: Not Given Documented by: Influenza Virus Vaccine (Pharmacy To Dose - Influenza Vaccine) 1 each IM ONETIME ONE Stop: 09/11/20 20:46 Last Admin: 09/11/20 22:15 Dose: Not Given Documented by: Influenza Virus Vaccine (Afluria Quad 2019- (3yr Up)) 60 mcg IM .ONCE ONE Stop: 09/12/20 10:01 Midazolam HCl (Versed 1 Mg/Ml) Confirm Administered Dose 2 mg .ROUTE .STK-MED ONE Stop: 10/22/20 13:25 Ondansetron HCl (Zofran) 4 mg IVPUSH Q4H PRN PRN Reason: Nausea/Vomiting Pantoprazole Sodium (Protonix Iv) 40 mg IV DAILY TRACEY Last Admin: 09/16/20 08:24 Dose: 40 mg Documented by: Sodium Chloride ([place] Nasal Christmas) 0 ml NASBOTH Q4H PRN PRN Reason: DRY NOSE Last Admin: 09/14/20 13:07 Dose: 1 spray Documented by: Sodium Chloride (Saline Flush) 10 ml FLUSH ASDIRECTED PRN PRN Reason: saline flush Last Admin: 09/15/20 04:00 Dose: 10 ml Documented by: Sodium Phosphate (Neutra-Phos) 250 mg PO ONETIME ONE Stop: 09/11/20 20:19 Last Admin: 09/11/20 21:56 Dose: 250 mg Documented by: Trazodone HCl (Trazodone) 50 mg PO ONETIME ONE Stop: 09/12/20 23:25 Last Admin: 09/12/20 23:38 Dose: 50 mg Documented by: - Free Text/Narrative Note: I have seen and evaluated the patient. I have discussed findings and treatment plan with resident. I agree with the assessment and plan in the following note.
== END 2020-09-16 16:16 | DRG 208 ==
LOC: MW.MS 16:48 → MW.ICU 09-14 20:06
PROVIDERS: ADMIT Student in an Organized Health Care Education/Training Program; ATTEND Student in an Organized Health Care Education/Training Program
PROC: XW033E5 Introduction of Remdesivir Anti-infective into Peripheral Vein, Percutaneous Approach, New Technology Group 5 (ICD-10-PCS; 2020-09-10)
PROC: XW13325 Transfusion of Convalescent Plasma (Nonautologous) into Peripheral Vein, Percutaneous Approach, New Technology Group 5 (ICD-10-PCS; 2020-09-12)
PROC: 0BH17EZ Insertion of Endotracheal Airway into Trachea, Via Natural or Artificial Opening (ICD-10-PCS; principal; 2020-09-16)
PROC: 5A1935Z Respiratory Ventilation, Less than 24 Consecutive Hours (ICD-10-PCS; 2020-09-16)
DX: U07.1 COVID-19 (principal); J96.01 Acute respiratory failure with hypoxia; J12.89 Other viral pneumonia; E87.1 Hypo-osmolality and hyponatremia; G50.0 Trigeminal neuralgia; E87.8 Other disorders of electrolyte and fluid balance, not elsewhere classified; Z79.899 Other long term (current) drug therapy
CPT/HCPCS: 31500; 36415; 36430; 36600; 51702; 71045; 71045-26; 80053; 82803; 82962; 83735; 84100; 84145; 85025; 85610; 85730; 86900; 86901; 94002; 94640; 94660; 99222; 99231; 99232; 99239; A9270-GY; C9113; J1650; J1940; J1956; J2250; J2704; J3010; J7050; J7620-GY; J8540; P9017